=== PATIENT | female | born 1935 | race Caucasian/White ===

== ENCOUNTER 2017-05-24 11:52 | Inpatient (IN) | payer OTHER ==
[~2017-05-24] VITALS: Ht 167.6 cm; Wt 69.4 kg
[2017-05-24] MEDS ORDERED: OMEPRAZOLE20 M2 PO (12:03)
[2017-05-24] MEDS ORDERED: METOPROLOL SUC200 M2 PO (12:03)
[2017-05-24] MEDS ORDERED: METFORMIN HCL500 M3 PO (12:04)
[2017-05-24] MEDS ORDERED: LOSARTAN POTAS100 M1 PO (12:04)
[2017-05-24] MEDS ORDERED: HYDROCHLOROTH12.5 M3 PO (12:05)
[2017-05-24] MEDS ORDERED: ATORVASTATIN CA20 M1 PO (12:05)
[2017-05-24] MEDS ORDERED: OCUVITE WITH L1 EACH PO (12:06)
--- NOTE | 2017-05-24 12:12 | ED MVC/FALL/TRAUMA COMPLAINT ---
History of Present Illness General Chief Complaint: Fall Stated Complaint: BIBA FOR FALL Source: patient, EMS Exam Limitations: no limitations Allergies Coded Allergies: Penicillins (RASH 05/24/17) Sulfa (Sulfonamide Antibiotics) (RASH 05/24/17) acetaminophen (PASSES OUT, POURING SWEAT 05/24/17) azithromycin (RASH 05/24/17) cephalexin (From KEFLEX) (RASH 05/24/17) ciprofloxacin (From CIPRO) (RASH 05/24/17) erythromycin base (RASH 05/24/17) ibuprofen (PASSES OUT, POURING SWEAT 05/24/17) Reconcile Medications Aspirin (Ecotrin*) 81 MG TABLET.DR 1 TAB PO DAILY HEART/BLOOD (Reported) Atorvastatin Calcium 20 MG TABLET 20 MG PO DAILY CHOLESTEROL (Reported) Calcitriol 0.25 MCG CAPSULE 1 CAP PO Friday PARATHYROID (Reported) Calcium Carbonate/Vitamin D3 (Os-Julio 500+D3 Caplet) (Unknown Strength) TABLET (Unknown Dose) PO DAILY SUPPLEMENT (Reported) Clonidine 0.1 MG/24 HOUR PATCH.TDWK 1 PATCH TOP QFRI BP (Reported) Hydrochlorothiazide 12.5 MG CAPSULE 3 CAP PO DAILY BP (Reported) Isradipine 2.5 MG CAPSULE 2 CAP PO QAM BP (Reported) Isradipine 2.5 MG CAPSULE 1 CAP PO QPM BP (Reported) Losartan Potassium 100 MG TABLET 100 MG PO QPM HTN (Reported) Metformin HCl 500 MG TABLET 500 MG PO DAILY DM (Reported) Metoprolol Succinate 200 MG TAB.ER.24H 200 MG PO DAILY HEART/BP (Reported) Omeprazole 20 MG CAPSULE.DR 20 MG PO DAILY AC GI (Reported) Vit A,C & E/Lutein/Minerals (Ocuvite With Lutein Tablet) 1,000-60-2 TABLET 1 TAB PO DAILY SUPPLEMENT (Reported) Triage Note: PT HAD AN UNWITNESSED TRIP AND FALL WHILE ATTEMPTING TO GET BACK IN HER HOUSE. PT DENIES HITTING HER HEAD. NO LOC. NO BLOOD THINNERS. PT C/O R KNEE PAIN. PT WAS UNABLE TO GET UP INDEPENDENTLY AND WAS ON THE FLOOR FOR APPROXIMATELY 2 HOURS. Triage Nurses Notes Reviewed? yes Onset: Just prior to arrival Duration: hour(s): (2) Timing: no prior history Severity: moderate Severity Numbers: 8 Injuries/Fall Location: lower extremity Method of Injury: fall Loss of Consciousness: no loss of consciousness Modifying Factors: Improves With: rest. Worsens With: movement, palpation. Associated Symptoms: RIGHT KNEE SWELLING HPI: Patient is an 82-year-old female from home presenting to the emergency department via EMS with chief complaint of right knee pain, swelling left-sided suddenly after she tripped and fell prior to arrival. Patient was that she was walking into her house and slipped on a rug in the [facility]. She reports that she fell forward and landed directly on her right knee. Denies any head injury or loss of consciousness. Denies any back or neck pain. She was unable to get up by herself and happily on the floor for approximately 1-2 hours for the mailman to come. Denies numbness or tingling. Pain is worse with any type of movement. Denies taking anything for pain prior to arrival. Denies any nausea or vomiting fevers or chills chest pain or shortness of breath. Denies any lightheadedness or dizziness. No chest pain or palpitations. Patient reports that FALL WAS PURELY mechanical. (Lianna Chanel) Vital Signs & Intake/Output Vital Signs & Intake/Output Vital Signs Date Time Temp Pulse Resp B/P B/P Pulse O2 O2 Flow FiO2 Mean Ox Delivery Rate 05/24 1715 98.1 81 16 182/74 97 Room Air 05/24 1651 97.2 70 16 176/64 98 Room Air 05/24 1502 98.0 74 18 182/62 96 Room Air 05/24 1413 97.8 62 18 195/84 97 Room Air 05/24 1210 184/72 05/24 1158 97.7 69 18 98 Room Air (Nata MAGALLANES,Ian Jnoas) Past History Travel History Traveled to [place] past 21 day No Medical History Any Pertinent Medical History? see below for history Cardiovascular: hypertension, hyperlipidemia Gastrointestinal: GERD Endocrine: diabetes Surgical History Surgical History: non-contributory Psychosocial History What is your primary language Togolese Tobacco Use: Never used Family History Hx Contributory? No (Lianna Chanel) Review of Systems Review of Systems Constitutional: Reports: no symptoms. Comments Review of systems: See HPI, All other systems negative. Constitutional, no chills fever or weight loss HEENT: No visual changes no sore throat no congestion Cardiovascular: No chest pain ,palpitation , orthopnea or ankle swelling Skin, no jaundice no rashes Respiratory: No dyspnea cough sputum or hemoptysis GI: No nausea no vomiting : No dysuria No hematuria Muscle skeletal: no back pain, no neck pain, Neurologic: No numbness no confusion Psych: No stress anxiety or depression,. Heme/endocrine: No bruising no bleeding no polyuria or polydipsia Immunology: No splenectomy or history of AIDS (Lianna Chanel) Physical Exam Physical Exam General Appearance: well developed/nourished, no apparent distress, alert, awake , comfortable Comments: Well-developed well-nourished person in no acute distress HEENT: extraocular motion intact, no nystagmus. Pupils equally round and reactive to light and accommodation. Nose is atraumatic. External auditory canal and Tympanic membranes clear. Pharynx normal. No swelling or edema. No hemotympanum. No pain to palpation over the facial months. Neck: Supple,, no C-spine tenderness, full range of motion. Back: Nontender, no pain to palpation over the thoracic or lumbar spine. No ecchymosis noted to the back. Cardiovascular: Regular rate and rhythms no murmurs rubs or gallops Respiratory: Chest nontender. No respiratory distress.breath sounds clear to auscultation bilaterally Abdomen: Soft, nontender nondistended, no appreciable organomegaly. Normal bowel sounds. No ascites, no rebound or guarding. Extremity: Moderate edema and ecchymosis noted over the right patella. There is tenderness to palpation diffusely over the right knee. Positive ballottement test on the right knee. No pain to palpation of the right calf, right ankle or foot. Full range of motion of right foot and toes without difficulty. Nontender to palpation of the right hip. Mild tenderness to palpation over the right distal femur. Full range of motion of upper extremities without difficulty or pain. Pin Cleaner strength equal and symmetric bilaterally. Range of motion of left lower extremity without difficulties or pain. Neuro: Alert oriented x3, motor sensory normal, cranial nerves II through XII grossly intact. Cerebellar testing is unremarkable. Skin: No appreciable rash on exposed skin, skin is warm and dry. Psych: Mood and affect is normal, memory and judgment is normal. Core Measures ACS in differential dx? No CVA/TIA Diagnosis No Sepsis Present: No Sepsis Focused Exam Completed? No (Erika PA,Lianna) Progress Differential Diagnosis: LIGAMENTOUS INJURY, SPRAIN, PATELLAR FRACTURE, HIP FRACTURE, FEMUR FRACTURE Diagnostic Imaging: Viewed by Me: Radiology Read. Discussed w/RAD: Radiology Read. Radiology Impression: PATIENT: MARK DENTON PRESENT AGE: 82 PATIENT ACCOUNT NO: [id number] : 34 LOCATION: [facility] ORDERING PHYSICIAN: Lianna GUILLORY SERVICE DATE: 05/24/17 EXAM TYPE: RAD - XRY-HIP 2-3 VIEWS, RIGHT; XRY-KNEE COMPLETE RIGHT EXAMINATION: XR HIP; KNEE, RIGHT CLINICAL INFORMATION: 82-year-old woman with fall and pain. COMPARISON: None TECHNIQUE: AP view of the pelvis and 2 dedicated views of the right hip were obtained along with 4 views of the right knee. FINDINGS: Pelvis/hip: AP view of the pelvis demonstrates no evidence of acute fracture. Chronic degenerative changes are seen at the pubic symphysis and SI joints. There has been prior lower lumbar spinal fusion. Dedicated views of the right hip demonstrates no evidence of acute fracture. Alignment remains anatomic. There is mild degenerative loss of normal articular cartilage space. Knee: There is a comminuted and superiorly displaced fracture of the patella which appears somewhat fragmented. The position of the patella suggests disruption of the patellar ligament is well, at least superiorly. Alignment of the femur and tibia is anatomic. There is chondrocalcinosis and mild to moderate loss of medial and lateral compartment articular cartilage space. There is prepatellar soft tissue swelling. No definite joint effusion is identified. IMPRESSION: 1. No evidence of acute fracture or dislocation involving the pelvis or right hip. 2. Comminuted and fragmented fracture of the patella with superior dislocation and presumed disruption of the superior patellar ligament. DICTATED BY: Xenia Barone MD DATE/TIME DICTATED:05/24/171441 QUALITY ASSURANCE TECHNICIAN:RUSS DATE/TIME TRANSCRIBED:05/24/171441 CONFIDENTIAL, DO NOT COPY WITHOUT APPROPRIATE AUTHORIZATION. <Electronically signed in Other Vendor System> SIGNED BY: Xenia Barone MD 05/24/171447 CXR Impression: PATIENT: MARK DENTON PRESENT AGE: 82 PATIENT ACCOUNT NO: [id number] : 34 LOCATION: ER ORDERING PHYSICIAN: Lianna GUILLORY SERVICE DATE: 05/24/17-150 EXAM TYPE: RAD - XRY- PORTABLE CHEST XRAY EXAMINATION: XR PORTABLE CHEST CLINICAL INFORMATION: Preop. COMPARISON: Chest radiography 10/18/2010. TECHNIQUE: Portable frontal view of the chest was obtained. FINDINGS: The lungs are well expanded. No focal consolidation, pleural effusion, pulmonary edema, or pneumothorax. No mediastinal widening. Aortic atherosclerotic calcification. No acute osseous abnormalities. IMPRESSION: No acute pulmonary pathology. DICTATED BY: Ross Contrears MD DATE/TIME DICTATED:05/24/171534 QUALITY ASSURANCE TECHNICIAN:RUSS DATE/TIME TRANSCRIBED:05/24/171534 CONFIDENTIAL, DO NOT COPY WITHOUT APPROPRIATE AUTHORIZATION. <Electronically signed in Other Vendor System> SIGNED BY: Ross Contreras MD 05/24/17 8124 (Lianna Chanel) Plan of Care: Orders Procedure Date/time Status Nothing by Mouth 05/25 B Active CBC WITHOUT DIFFERENTIAL 05/25 0600 Active BASIC ELECTROLYTES PLUS BUN&CR 05/25 0600 Active Heart Healthy Diet 05/24 D Complete FingerStick- Glucose 05/24 1801 Active Device(s) 05/24 1652 Active Weight 05/24 1651 Complete Vital Signs 05/24 1651 Active Teach/Educate 05/24 1651 Active Pain Treatment and Response 05/24 1651 Active Nutritional Intake, Monitor 05/24 1651 Active Isolation 05/24 1651 Active Intake & Output 05/24 1651 Active Patient Care Conference 05/24 1651 Active Activity/Ambulation 05/24 1651 Active Pathway - chart 05/24 1631 Active House Staff 05/24 1631 Active Misc Message 05/24 1607 Active ED Holding Orders 05/24 1607 Active Vital Signs 05/24 1607 Active Code Status 05/24 1607 Active Admit to inpatient 05/24 1554 Active Patient Data 05/24 1530 Active EKG 05/24 1508 Active PARTIAL THROMBOPLASTIN TIME 05/24 1425 Complete PROTHROMBIN TIME 05/24 1425 Complete COMPREHENSIVE METABOLIC PANEL 05/24 1425 Complete CBC WITHOUT DIFFERENTIAL 05/24 1425 Complete TYPE & SCREEN (NOT X-MATCH) 05/24 1425 Complete Durable Medical Equipment 05/24 1416 Active Intake & Output 05/24 1155 Active VTE Mechanical Prophylaxis 05/24 UNK Active FingerStick- Glucose 05/24 UNK Active Current Medications Sig/Torin Start time Last Medication Dose Stop Time Status Admin Calcitriol 0.25 MCG 05/26 1000 AC (Rocaltrol 0.25 Mcg Cap) Hydrochlorothiazide 37.5 MG DAILY 05/26 1000 CAN (Hydrodiuril) Atorvastatin Calcium 20 MG DAILY 05/25 1000 AC (Lipitor) Metoprolol Succinate 200 MG DAILY 05/25 1000 AC (Toprol Xl) Non-Formulary 2.5 UNIT QAM 05/25 1000 UNVr Medication (NON FORMULARY) Omeprazole 20 MG DAILY AC 05/25 0700 AC (Prilosec) Dextrose/Sodium 1,000 ML Q13H 05/25 0600 AC Chloride (D5W-1/2 Normal Saline 1000ML) Insulin Human Regular 0 Q6 05/24 2359 AC (NovoLIN R) Heparin Sodium 5,000 UNIT Q8 05/24 2200 CAN (Porcine) Losartan Potassium 100 MG QPM 05/24 2200 AC (Cozaar) Non-Formulary 2.5 UNIT QPM 05/24 2200 UNVr Medication (NON FORMULARY) Lidocaine 1 PAT DAILY PRN 05/24 1830 AC (Lidoderm) Morphine Sulfate 2 MG Q4 PRN 05/24 1830 AC (MORPHINE SULFATE) Acetaminophen 500 MG Q6P PRN 05/24 1645 CAN (Tylenol) Acetaminophen 1,000 MG Q8 PRN 05/24 1645 CAN (Ofirmev) Laboratory Tests 05/24/17 1443: Anion Gap 13, Estimated GFR 47 L, BUN/Creatinine Ratio 34.5 H, Glucose 115 H, Calcium 9.8, Total Bilirubin 0.8, AST 24, ALT 28, Alkaline Phosphatase 60, Total Protein 7.4, Albumin 4.3, Globulin 3.1, Albumin/Globulin Ratio 1.4, PT 11.3, INR 1.08, APTT 28, CBC w Diff NO MAN DIFF REQ, RBC 5.16, MCV 90.1, MCH 29.2, MCHC 32.5 L, RDW 13.5, MPV 9.0, Gran % 76.8 H, Lymphocytes % 17.8 L, Monocytes % 4.6, Eosinophils % 0.5, Basophils % 0.3, Absolute Granulocytes 10.4 H, Absolute Lymphocytes 2.4, Absolute Monocytes 0.6, Absolute Eosinophils 0.1, Absolute Basophils 0 (Ian Peace MD) Departure Departure Time of Disposition: 1533 Disposition: STILL A PATIENT Condition: Stable Clinical Impression Primary Impression: Patella fracture Qualifiers: Encounter type: initial encounter Fracture type: closed Fracture morphology: comminuted Fracture alignment: displaced Laterality: right Qualified Code: S82.041A - Displaced comminuted fracture of right patella, initial encounter for closed fracture Referrals: Darlene MAGALLANES,Steven Marie (PCP/Family) Departure Forms: Customer Survey General Discharge Information Admission Note Spoke With: Judd Ragland MD Documentation of Exam: Documentation of any treatments & extenuating circumstances including Concerns Regarding Discharge (functional status, medication knowledge or non-compliance, living conditions, etc.) that warrant an admission rather than observation: Patient requiring surgical fixation of right patella, will need physical therapy evaluation, potential rehabilitation placement. Pain control. Patient will need medical clearance prior to surgical procedure. Discharge at this time is medically harmful is patient lives alone, increased fall RISK. (Lianna Chanel) PA/BILLET DRILLER Co-Sign Statement Statement: ED Attending supervision documentation- [X] I saw and evaluated the patient. I have also reviewed all the pertinent lab results and diagnostic results. I agree with the findings and the plan of care as documented in the PA's/BILLET DRILLER's documentation. Patient presents for evaluation of injury sustained status post fall. Physical examination reveals right knee tenderness with otherwise neurovascularly intact right lower extremity. [] I have reviewed the ED Record and agree with the PA's/BILLET DRILLER's documentation. [] Additions or exceptions (if any) to the PAs/BILLET DRILLER's note and plan are summarized below: [] (Nata MAGALLANES,Ian Jonas) Procedures Splinting Location: RIGHT KNEE Manual Alignment Performed: No Pre-Made Type: knee imobilizer Splint Applied By: splint applied by other (NURSING) Pre-Proc Neuro Vasc Exam: normal Post-Proc Neuro Vasc Exam: normal Progress: TOLERATED WELL. (Lianna Chanel)
--- NOTE | 2017-05-24 14:48 | RADIOLOGY REPORT ---
EXAMINATION: XR HIP; KNEE, RIGHT CLINICAL INFORMATION: 82-year-old woman with fall and pain. COMPARISON: None TECHNIQUE: AP view of the pelvis and 2 dedicated views of the right hip were obtained along with 4 views of the right knee. FINDINGS: Pelvis/hip: AP view of the pelvis demonstrates no evidence of acute fracture. Chronic degenerative changes are seen at the pubic symphysis and SI joints. There has been prior lower lumbar spinal fusion. Dedicated views of the right hip demonstrates no evidence of acute fracture. Alignment remains anatomic. There is mild degenerative loss of normal articular cartilage space. Knee: There is a comminuted and superiorly displaced fracture of the patella which appears somewhat fragmented. The position of the patella suggests disruption of the patellar ligament is well, at least superiorly. Alignment of the femur and tibia is anatomic. There is chondrocalcinosis and mild to moderate loss of medial and lateral compartment articular cartilage space. There is prepatellar soft tissue swelling. No definite joint effusion is identified. IMPRESSION: 1. No evidence of acute fracture or dislocation involving the pelvis or right hip. 2. Comminuted and fragmented fracture of the patella with superior dislocation and presumed disruption of the superior patellar ligament.
[2017-05-24 15:08] LABS: ABSOLUTE BASOPHIL COUNT 0 /CUMM (0.0-0.2); ABSOLUTE EOSINOPHIL COUNT 0.1 /CUMM (0.0-0.7); ABSOLUTE GRANULOCYTE CT 10.4 /CUMM (1.4-6.5); ABSOLUTE LYMPH COUNT 2.4 /CUMM (1.2-3.4); ABSOLUTE MONOCYTE COUNT 0.6 /CUMM (0.10-0.60); BASOPHIL % 0.3 % (0.0-2.0); EOSINOPHIL % 0.5 % (0-5); HEMATOCRIT 46.5 % (37-47); MEAN CORPUSCULAR HGB 29.2 PG (27.0-31.0); MEAN CORPUSCULAR HGB CONC 32.5 G/DL (33.0-37.0); MEAN CORPUSCULAR VOLUME 90.1 FL (81.0-99.0); PLATELET COUNT 322 /CUMM (130-400); RBC DISTRIBUTION WIDTH 13.5 % (11.5-14.5); RED BLOOD CELL CT 5.16 /CUMM (4.20-5.40); WHITE BLOOD CELL COUNT 13.6 /CUMM (4.8-10.8)
[2017-05-24 15:09] LABS: GRANULOCYTE % 76.8 % (42.2-75.2)
[2017-05-24 15:16] LABS: PT 11.3 SEC (9.4-12.5); PTT 28 SEC (25-37)
--- NOTE | 2017-05-24 15:31 | History & Physical ---
Roderick MAGALLANES,Michele 05/24/17 1531: General Information and HPI MD Statement: I have seen and personally examined MARK DENTON and documented this H&P. The patient is a 82 year old F who presented with a patient stated chief complaint of mechanical fall. Source of Information: patient Exam Limitations: no limitations History of Present Illness: This is a very pleasant 82-year-old lady with a past medical history of hypertension managed by multiple medications, diabetes, is BIBA after having a mechanical fall. Earlier today patient was walking back into her house and she slipped on a rug and fell hard on her knees. She denied hitting her head. Patient reports not being able to get up by herself and spent almost an hour on the floor until someone came over to assist her. She denies any lightheadedness , syncope, chest pain, palpitation, or vertigo prior to the fall. She does report that it was slippery outside. Review of systems negative for any fever, chills, weakness, muscle aches, abdominal pain or dysuria. Allergies/Medications Allergies: Coded Allergies: Penicillins (RASH 05/24/17) Sulfa (Sulfonamide Antibiotics) (RASH 05/24/17) acetaminophen (PASSES OUT, POURING SWEAT 05/24/17) azithromycin (RASH 05/24/17) cephalexin (From KEFLEX) (RASH 05/24/17) ciprofloxacin (From CIPRO) (RASH 05/24/17) erythromycin base (RASH 05/24/17) ibuprofen (PASSES OUT, POURING SWEAT 05/24/17) Home Med list Aspirin (Ecotrin*) 81 MG TABLET.DR 1 TAB PO DAILY HEART/BLOOD (Reported) Atorvastatin Calcium 20 MG TABLET 20 MG PO DAILY CHOLESTEROL (Reported) Calcitriol 0.25 MCG CAPSULE 1 CAP PO Friday PARATHYROID (Reported) Calcium Carbonate/Vitamin D3 (Os-Julio 500+D3 Caplet) (Unknown Strength) TABLET (Unknown Dose) PO DAILY SUPPLEMENT (Reported) Clonidine 0.1 MG/24 HOUR PATCH.TDWK 1 PATCH TOP QFRI BP (Reported) Hydrochlorothiazide 12.5 MG CAPSULE 3 CAP PO DAILY BP (Reported) Isradipine 2.5 MG CAPSULE 2 CAP PO QAM BP (Reported) Isradipine 2.5 MG CAPSULE 1 CAP PO QPM BP (Reported) Losartan Potassium 100 MG TABLET 100 MG PO QPM HTN (Reported) Metformin HCl 500 MG TABLET 500 MG PO DAILY DM (Reported) Metoprolol Succinate 200 MG TAB.ER.24H 200 MG PO DAILY HEART/BP (Reported) Omeprazole 20 MG CAPSULE.DR 20 MG PO DAILY AC GI (Reported) Vit A,C & E/Lutein/Minerals (Ocuvite With Lutein Tablet) 1,000-60-2 TABLET 1 TAB PO DAILY SUPPLEMENT (Reported) Past History Travel History Traveled to [place] past 21 day No Medical History Cardiovascular: hypertension, hyperlipidemia Gastrointestinal: GERD Endocrine: diabetes Surgical History Surgical History: non-contributory Review of Systems Review of Systems Constitutional: Reports: see HPI. Exam & Diagnostic Data Last 24 Hrs of Vital Signs/I&O Vital Signs Date Time Temp Pulse Resp B/P B/P Pulse O2 O2 Flow FiO2 Mean Ox Delivery Rate 05/24 1715 98.1 81 16 182/74 97 Room Air 05/24 1651 97.2 70 16 176/64 98 Room Air 05/24 1502 98.0 74 18 182/62 96 Room Air 05/24 1413 97.8 62 18 195/84 97 Room Air 05/24 1210 184/72 05/24 1158 97.7 69 18 98 Room Air Intake & Output 05/24 1600 05/24 0800 05/24 0000 Intake Total 0 Output Total Balance 0 Intake, Oral 0 Patient 69.4 kg Weight Weight Estimated Measurement Method Physical Exam General Appearance Alert, Oriented X3, Cooperative Skin No Significant Lesion Skin Temp/Moisture Exam: Warm/Dry Sepsis Skin Exam (color): Normal for Ethnicity HEENT Atraumatic, Mucous Membr. moist/pink Neck Supple, No JVD Lymphatic Cervical nl Cardiovascular Regular Rate, Normal S1, Normal S2 Lungs Clear to Auscultation, Normal Air Movement Abdomen Normal Bowel Sounds, Soft, No Tenderness Neurological Normal Speech, Normal Tone, Sensation Intact, Cranial Nerves 3-12 NL, Reflexes 2+ Extremities orthopedic brace intact on the right knee. ROM is decraesed due to swelling and pain. Sensation intact. Vascular Normal Pulses, Pulses Symmetrical Last 24 Hrs of Labs/Jason: Laboratory Tests 05/24/17 1443: Anion Gap 13, Estimated GFR 47 L, BUN/Creatinine Ratio 34.5 H, Glucose 115 H, Calcium 9.8, Total Bilirubin 0.8, AST 24, ALT 28, Alkaline Phosphatase 60, Total Protein 7.4, Albumin 4.3, Globulin 3.1, Albumin/Globulin Ratio 1.4, PT 11.3, INR 1.08, APTT 28, CBC w Diff NO MAN DIFF REQ, RBC 5.16, MCV 90.1, MCH 29.2, MCHC 32.5 L, RDW 13.5, MPV 9.0, Gran % 76.8 H, Lymphocytes % 17.8 L, Monocytes % 4.6, Eosinophils % 0.5, Basophils % 0.3, Absolute Granulocytes 10.4 H, Absolute Lymphocytes 2.4, Absolute Monocytes 0.6, Absolute Eosinophils 0.1, Absolute Basophils 0 Diagnostic Data Other Results SERVICE DATE: 05/24/17 EXAM TYPE: RAD - XRY-HIP 2-3 VIEWS, RIGHT; XRY-KNEE COMPLETE RIGHT EXAMINATION: XR HIP; KNEE, RIGHT CLINICAL INFORMATION: 82-year-old woman with fall and pain. COMPARISON: None TECHNIQUE: AP view of the pelvis and 2 dedicated views of the right hip were obtained along with 4 views of the right knee. FINDINGS: Pelvis/hip: AP view of the pelvis demonstrates no evidence of acute fracture. Chronic degenerative changes are seen at the pubic symphysis and SI joints. There has been prior lower lumbar spinal fusion. Dedicated views of the right hip demonstrates no evidence of acute fracture. Alignment remains anatomic. There is mild degenerative loss of normal articular cartilage space. Knee: There is a comminuted and superiorly displaced fracture of the patella which appears somewhat fragmented. The position of the patella suggests disruption of the patellar ligament is well, at least superiorly. Alignment of the femur and tibia is anatomic. There is chondrocalcinosis and mild to moderate loss of medial and lateral compartment articular cartilage space. There is prepatellar soft tissue swelling. No definite joint effusion is identified. IMPRESSION: 1. No evidence of acute fracture or dislocation involving the pelvis or right hip. 2. Comminuted and fragmented fracture of the patella with superior dislocation and presumed disruption of the superior patellar ligament. Assessment/Plan Assessment: This is an 82-year-old very pleasant lady presenting for evaluation of mechanical fall and is found to have radiological evidence of fracture patella. Impression * Mechanical fall. * Patella fracture. Secondary to mechanical fall. * Need for preop clearance. * History of chronic disease: Diabetes, hypertension. Plan * Admit to general medicine floor * Will keep nothing by mouth starting midnight in anticipation of orthopedic repair of the fractured platella * At baseline, patient is able to climb 2 flights of stairs with no difficulties which is > 4 MET and therefore does not require any further cardiac stress testing. * RCR-Index of 0, which is a class I risk signifying 0.4% risk for major cardiac event * Hold off on the diuretic as this type of medication can be associated with increased mortality if used during operative day. * Will hold off losartan on day of surgery * Continue metoprolol including the day of surgery * Nothing by mouth Novolin dosing starting midnight * Morphine as needed for moderate to severe pain control. For mild pain control will use lidocaine topically as patient is allergic to Tylenol and ibuprofen. * DVT PPX: ALPS * CODE STATUS: FC As Ranked By This Provider Problem List: 1. Patella fracture Qualifiers Encounter type: initial encounter Fracture type: closed Fracture morphology: comminuted Fracture alignment: displaced Laterality: right Qualified Code: S82.041A - Displaced comminuted fracture of right patella, initial encounter for closed fracture Core Measures/Misc (12/08) Acute Coronary Syndrome ACS Diagnosis: No Congestive Heart Failure Congestive Heart Failure Diagnosis No Cerebrovascular Accident CVA/TIA Diagnosis: No VTE (View Protocol) VTE Risk Factors No risk factors No Mechanical VTE Prophylaxis d/t N/A MechProphylax Ordered No VTE Pharm Prophylaxis d/t Surgical Contraindication Sepsis (View protocol) Sepsis Present: No Judd Ragland MD 05/25/17 0807: Attending MD Review Statement Attending Statement Attending MD Statement: examined this patient, discuss w/resident/PA/CONSULTING SERVICES MANAGER, agreed w/resident/PA/CONSULTING SERVICES MANAGER, discussed with family, reviewed EMR data (avail), reviewed images, amended to note Attending Assessment/Plan: The patient is an 82 yo female with h/o HTN & DM2 who presented in the Ed after a mechanical fall onto her knees and sustained a comminuted/fragmented right patellar fracture. She denied any dyspnea, chest pain, palpitations, weakness, etc. Seen by orthopedics, she will require surgical intervention. Physical Exam: VS: T 97.7, P 69, R 18, BP 184/72, PO 98% RA HEENT: eyes- PERRLA, EOMI norbert- moist mucosa, no lesions Neck: no JVD/bruits Chest: clear Cor: RRR nl S1, S2 w/o murm Abd: BS+, soft, NT, - HSM Ext: s/p right patellar fx- immobilized; no LE edema, pulses 2+ Neuro: non-focal (gait could not be tested) Labs/Tests- as above Impression/Plan: #Acute Right Patellar Fracture- comminuted/fragmented, s/p mechanical fall. Probable osteoporosis in 82 yo post menopausal female. RCRI suggests 0.4% cardiac risk for surgery. Plan: Admit to medical service- orthopedic consultation regarding surgical intervention 3/4. Patient is medically able to tolerate planned surgery. Will continue Ca/Vit D, etc. post op. #Essential HTN- BP slightly elevated due to pain. Plan: As per resident note- will give Metoprolol in morning with sip of water. Resume Losartan/Isradipine (or substitute Amlodipine) when needed. Hold HCTZ at present. Clonidine patch removed, however will replace post op- monitor BP. #DM2- patient has had stable sugars at home. Plan: Hold Metformin and check glucoscans and use sliding scale insulin in hospital. #HL- on Atorvastatin. Plan: Continue Atorvastatin. #GERD- on Omeprazole. Plan: Continue Omeprazole.
[2017-05-24] MEDS ORDERED: ASPIRIN EC81 M1 PO (15:38)
[2017-05-24] MEDS ORDERED: OS-CAL 500+D31 EAC1 PO (15:40)
[2017-05-24] MEDS ORDERED: CALCITRIOL0.25 MC1 PO (15:40)
[2017-05-24] MEDS ORDERED: ISRADIPINE2.5 MG PO ×2 (15:42)
[2017-05-24] MEDS ORDERED: CLONIDINE1 EACH TOP (15:42)
--- NOTE | 2017-05-24 15:44 | RADIOLOGY REPORT ---
EXAMINATION: XR PORTABLE CHEST CLINICAL INFORMATION: Preop. COMPARISON: Chest radiography 10/18/2010. TECHNIQUE: Portable frontal view of the chest was obtained. FINDINGS: The lungs are well expanded. No focal consolidation, pleural effusion, pulmonary edema, or pneumothorax. No mediastinal widening. Aortic atherosclerotic calcification. No acute osseous abnormalities. IMPRESSION: No acute pulmonary pathology.
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
[2017-05-24 17:15] VITALS: BP 182/74
[2017-05-24 22:22] VITALS: BP 158/78
--- NOTE | 2017-05-25 00:16 | Admission Certification ---
Admission Certification Certification Statement - As attending physician, I certify that at the time of - admission, based on clinical presentation, severity of - symptoms, need for further diagnostic testing and - therapeutic interventions, and risk of adverse outcomes - without in-hospital treatment, in my clinical assessment, - this patient requires an acute hospital stay for a minimum - of two nights or longer. I have also considered psychsocial - factors such as support system, advanced age, financial - issues, cognitive issues, and failed out-patient treatments, - past re-admission history, safety of patient, and lack of - compliance as applicable. Specific rationale supporting this admission is: The patient presents with acute right patellar fracture s/p mechanical fall requiring surgical intervention. Will admit to medical service, treat pain via pain pathway. NPO in morning for surgery.
[2017-05-25 05:53] VITALS: BP 122/68
[2017-05-25 08:54] LABS: ABSOLUTE EOSINOPHIL COUNT 0.1 /CUMM (0.0-0.7); ABSOLUTE LYMPH COUNT 3.5 /CUMM (1.2-3.4); ABSOLUTE MONOCYTE COUNT 1.1 /CUMM (0.10-0.60); EOSINOPHIL % 0.7 % (0-5); MEAN PLATELET VOLUME 9.4 FL (7.4-10.4); RBC DISTRIBUTION WIDTH 13.8 % (11.5-14.5)
--- NOTE | 2017-05-25 08:55 | PN- Housestaff ---
Roderick MAGALLANES,Michele 05/25/17 0854: Subjective Follow-up For: Patella fracture Subjective: Patient is seen and examined at bedside. She does endorse pain on her fractured patella area, she has been receiving when necessary morphine IV which she states helps. Denies any overnight fever, chills, nausea, vomiting, chest pain, palpitation, neurological focality, or dysuria. She is nothing by mouth and scheduled for surgery around 4 PM. Review of Systems Constitutional: Reports: see HPI. Objective Last 24 Hrs of Vital Signs/I&O Vital Signs Date Time Temp Pulse Resp B/P B/P Pulse O2 O2 Flow FiO2 Mean Ox Delivery Rate 05/25 0916 94 158/64 05/25 0553 98.5 90 22 122/68 94 Room Air 05/24 2222 99.9 91 22 158/78 94 Room Air 05/24 2053 90 158/78 05/24 1715 98.1 81 16 182/74 97 Room Air 05/24 1651 97.2 70 16 176/64 98 Room Air 05/24 1502 98.0 74 18 182/62 96 Room Air 05/24 1413 97.8 62 18 195/84 97 Room Air 05/24 1210 184/72 05/24 1158 97.7 69 18 98 Room Air Intake & Output 05/25 1600 05/25 0800 05/25 0000 Intake Total 75 240 Output Total 300 500 Balance -300 -425 240 Intake, IV 75 Intake, Oral 0 240 Number 0 0 Bowel Movements Output, Urine 300 500 Patient 69.4 kg Weight Weight Reported by Patient Measurement Method Physical Exam General Appearance: Alert, Oriented X3, Cooperative Assessment/Plan Assessment: 82-year-old pleasant lady past medical history of hypertension on multiple BP meds, presented after mechanical fall and is found to have a patellar fracture. She is scheduled for patellar repair surgery today. Impression * Right patella fracture secondary to mechanical fall * History of chronic disease: Hypertension and diabetes * Leukocytosis. Patient remains afebrile and no signs of clinical suspicion of infection such as cough, abdominal pain or dysuria. Most likely her leukocytosis is secondary to inflammatory processes from the injury. * Prerenal azotemia as evident by elevated BUN/creatinine ratio. However it seems to be resolving. Most likely secondary to decreased oral intake. Plan Continue nothing by mouth in preparation for surgery today Continue IV morphine for pain control Continue Accu-Cheks every 6h and Novolin coverage and will switch postop when patient is ready to resume diet Continue with D5 half normal at a gentle rate of 75mls per hour, this will also help with the prerenal is azotemia Follow-up in urinalysis, unlikely the patient has a UTI as she is symptom-free and afebrile. Will hold off losartan and clonidine today and restart post up, patient did take her metoprolol today Discharge disposition: Will l assess tomorrow after surgery, patient most likely will need STR. We will follow up with orthopedics recommendation on weightbearing status and postop care. Problem List: 1. Patella fracture Pain Ratin Pain Location: patella Pain Goal: Pain 4 or less Pain Plan: per pathway Tomorrow's Labs & Rationales: cbc Judd Lobo MD 05/25/17 1407: Attending MD Review Statement Attending Statement Attending MD Statement: examined this patient, discuss w/resident/PA/TRASHMAN, agreed w/resident/PA/TRASHMAN, reviewed EMR data (avail), discussed with nursing, amended to note Attending Assessment/Plan: The patient was seen and discussed with house staff. Awaiting orthopedic surgery later today. The patient is medically stable for planned procedure.
[2017-05-25 09:19] LABS: ABSOLUTE BASOPHIL COUNT 0 /CUMM (0.0-0.2); ABSOLUTE GRANULOCYTE CT 9.1 /CUMM (1.4-6.5); BASOPHIL % 0.2 % (0.0-2.0); GRANULOCYTE % 65.9 % (42.2-75.2); MEAN CORPUSCULAR HGB 29.8 PG (27.0-31.0); MEAN CORPUSCULAR VOLUME 90.2 FL (81.0-99.0); PLATELET COUNT 285 /CUMM (130-400); RED BLOOD CELL CT 4.38 /CUMM (4.20-5.40); WHITE BLOOD CELL COUNT 13.9 /CUMM (4.8-10.8)
[2017-05-25 09:22] LABS: HEMATOCRIT 39.5 % (37-47)
[2017-05-25 15:08] VITALS: BP 150/83
--- NOTE | 2017-05-25 18:36 | Operative Report ---
Operative/Inv Procedure Report Surgery Date: 05/25/17 Name of Procedure: Repair right comminuted displaced patellar fracture with partial patellectomy. Pre-Operative Diagnosis: Right comminuted displaced distal pole patella fracture. Post-Operative Diagnosis: Same. Estimated Blood Loss: less than 50ml Surgeon/[employer] Equipment Repairer: Viridiana Weaver Anesthesia: laryngeal mask airway, block Monitors: EKG/blood pressure/oxygen saturation IV Fluids: Lactated Ringer's. Implants: #5 FiberWire 2 #2 FiberWire 1 Urine Output: None. Drains: None. Specimens: Comminuted distal pole patella fracture fragments sent to pathology for documentation. Microbiology: None. Tourniquet: 14 minutes@300 mmHg (tourniquet deflated due to bleeding from venous tourniquet) . Complications: None known. Condition: Stable. Operative Indication: The patient is an 82-year-old female who sustained a trip and fall at her home landing directly on the right anterior knee. She was unable to get up from the ground on her own. In fact she was on the ground for about 2 hours before the postman noticed her lying on the ground in her foyer. She was brought to the [facility] emergency room where x-rays revealed a comminuted displaced distal pole patellar fracture. She was admitted to the hospital to undergo operative repair of the patella fracture. She was seen by the medical service to whose service she was actually admitted and she was optimized and ultimately cleared for surgery. We did discuss the risks and benefits and expected outcomes of nonoperative management of her displaced patella fracture versus that of operative intervention. I did recommend operative intervention as the only reasonable viable option for this fracture. All the patient's questions were answered at length. She did wish to move forward with surgical management of her patella fracture as recommended and surgical consent was obtained. Operative/Procedure Note Note: The patient was brought to the operating room and placed on the operating table in the supine position. General anesthesia by the anesthesia team was induced. This was supplemented with a right lower extremity femoral block for prolonged postoperative pain relief as well as to minimize need for medications intraoperatively. A dose of IV antibiotics were given for infection prophylaxis. A well-padded tourniquet was applied to the proximal portion of the right thigh. The contralateral left lower extremity was placed into a Compression sleeve to hopefully minimize left lower extremity venous pooling and cut down on risk of blood clot formation and propagation. All bony prominences were well-padded. The right lower extremity was then prepped and draped in the usual sterile fashion. The extremity was marked for a planned longitudinal midline anterior surgical incision centered over the region of the patella centrally and extending towards the medial aspect of the tibial tubercle distally and extending for about 5 cm proximally as well. After the skin was marked the extremity was exsanguinated and the pneumatic tourniquet was inflated to a pressure of 300 mmHg. The skin incision was created. Sharp dissection was continued down through the skin and the subcutaneous tissues we did encounter hemarthrosis which was evacuated as the retinacular tissue had been disrupted as part of the widely displaced patellar fracture. We raised full-thickness skin with subcutaneous tissue flaps along the incision to gain better exposure of the extensor mechanism. We were encountering some venous type bleeding which seem to be consistent with a venous tourniquet despite the tourniquet being up to 300 mmHg and the patient's systolic pressure not being particularly high. That being said we did deflate the tourniquet for the remainder of the case after tourniquet time of 14 minutes. With the tourniquet down we did encounter some increased bleeding for a bit. This was handled electrocautery and manual pressure. Once we had adequate hemostasis we evaluated the extensor mechanism. The patella fracture involving the distal roughly 1/3 of the patella. The fracture was markedly comminuted with no viable chance of using the distal fracture fragments for repair to the proximal two thirds of the patella. With that in mind we proceeded with partial patellectomy me dissecting out the comminuted displaced distal pole patellar fracture fragments trying to minimize disruption of the proximal patella ligament as best as possible. We aggressively debrided the retropatellar fat pad to help with skeletonizing the patella ligament from behind. We did also dissect down the medial and lateral aspects of the patella ligament so that we can skeletonize the patella ligament for repair. We next turned our attention to the remaining two thirds of the patella where we debrided the margins of the patellar fracture with a combination of scalpel and rongeurs. We now had reasonable exposure of the cancellus bone at the distal end of the patella. A transverse trough was created with a curette as a docking trough for the patella ligament. We next drilled 3 parallel longitudinal drill holes with a 2 mm drill bit in a distal to proximal direction beginning in the docking trough centrally and running the first drill hole towards the proximal pole of the patella as centrally as possible. We repeated this with 2 additional parallel drill holes with one to either side offset by about 1 cm in either direction allowing for bone bridges between the drill holes. We next redirected our attention towards the patella ligament. We used 2 #5 FiberWire sutures each placed in running Krakw fashion to gain control of the patella ligament. The first #5 FiberWire is placed in running Krakw fashion for the lateral one half of the patella ligament allowing the free ends of the FiberWire to come out the proximal free edge of the patella ligament. This was repeated with a second #5 FiberWire on the medial one half of the patella ligament. We next used a Hewson suture passer directed through the midline longitudinal drill hole in a proximal to distal direction to shuttle the central two #5 FiberWire limbs (the lateral limb of the medial Krakw suture and the medial limb of the lateral Krakw suture) up through the patella and out through a small puncture defect made in the distal quadriceps mechanism. We repeated this process with the Hewson suture passer to retrieve the remaining lateral suture limb of the lateral Krakw suture up through the lateral drill hole and the medial suture limbs of the medial Krakw suture up to the medial drill hole. We next used a hemostat to shuttle the central suture limbs under the patella ligament with the appropriate central suture limb being brought under the soft tissues and out the small defect in the lateral aspect of the distal quadriceps mechanism so that it could be mated with the lateral suture limb of the lateral Krakw suture. This was repeated in similar fashion for the medial set of sutures. We next placed Srinivas clamps on the retinacular tissues to either side of the patella and used that to pull down the patella with the quadriceps mechanism attached to it in a proximal to distal direction to allow for the free end of the patella ligament to be docked and sutured to the free margin of the remnant of the patella. By applying longitudinal traction to reduce the defect between the distal end of the patella and the free margin of the patella ligament both sets of free limbs of the sets of the Krakw sutures were tied over the bone bridges but under the distal quadriceps mechanism soft tissues. This accomplished a very nice repair of the free margin of the patella ligament to the distal free margin of the patella. The knee was irrigated with saline multiple times. We next used a combination of #2 FiberWire suture material and [address] additional supporting sutures into the retinacular soft tissues and to the anterior aspect of the patella ligament to the soft tissues over the anterior patella. This seemed to accomplish a very nice overall repair of the patella ligament back to bone. I did place the knee through a very limited range of knee flexion motion. I appreciated no gapping with flexion of the knee to about 40 though I did not feel comfortable stressing the repair any further beyond this. After additional irrigation the soft tissues were closed in layers with 0 Vicryl placed in the deep subcutaneous tissue layer. This was followed by use of 2-0 Vicryl placed in interrupted buried fashion in the more superficial subcutaneous tissue layer. The skin margins were then approximated using a skin stapler. The wound was washed and dried. Adaptic dressing was placed over the staple line followed by sterile gauze dressings and a couple of abdominal pads. The dressings and abdominal pads were held in place with a couple of rolls of Kerlix gauze wrapping. We next wrapped the extremity from the ankle distally to the upper thigh proximally with Navneet bandages to hold the dressings in place but also provide compression to the knee and gentle compression to the extremity in general hoping to minimize risk of venous pooling and blood clot formation a propagation. The right lower extremity was placed in full extension into a knee immobilizer. The patient was awakened from general anesthesia. She was transferred to her hospital bed and brought back to the recovery room in stable condition having tolerated the procedure well. Findings: 1) Comminuted distal pole patella fracture. 2) Excellent repair patella ligament to patellar defect achieved. Discharge Disposition: PACU
[2017-05-25 20:00] VITALS: BP 142/60
--- NOTE | 2017-05-25 20:55 | PN- Orthopedic ---
Subjective Subjective: POST-OP CHECK Pt in bed, complains of mod hip pain. right leg still mostly numb from pre-op block. No nausea denies cp/sob/petty. Objective Vital Signs and I&Os Vital Signs Date Time Temp Pulse Resp B/P B/P Pulse O2 O2 Flow FiO2 Mean Ox Delivery Rate 05/26 1999 65 16 142/60 97 Nasal 2.0L Cannula 05/25 1508 98.8 73 20 150/83 95 Room Air 05/25 0916 94 158/64 05/25 0553 98.5 90 22 122/68 94 Room Air 05/24 2222 99.9 91 22 158/78 94 Room Air 05/24 2053 90 158/78 Intake & Output 05/25 1600 05/25 0800 05/25 0000 05/24 1600 05/24 0000 Intake Total 75 240 0 Output Total 500 500 Balance -500 -425 240 0 Intake, IV 75 Intake, Oral 0 240 0 Number 0 0 Bowel Movements Output, Urine 500 500 Patient 153 lb 153 lb Weight Weight Reported by Patient Estimated Measurement Method Physical Exam: GEN-nad, pt comfortable resp-clear cardio-rrr abd- soft, NT ext- 2+ PT pulse bilaterally. distal motor function intact. limited sensation in right LE due to nerve block. Right leg wrapped in taylor bandage Assessment/Plan Assessment/Plan 82yo F SP R partial patellectomy POD0. stable Pain mangement Physical therapy- PWB on RLE, to wear knee immobilizer for 6-8 weeks Ice to op site as needed Reg diet DVT ppx- eliquis and alps 24h rhoda-op Clindamycin Core Measures Venous Thromboembolism VTE Risk Factors No risk factors No Mechanical VTE Prophylaxis d/t N/A MechProphylax Ordered No VTE Pharm Prophylaxis d/t Surgical Contraindication
[2017-05-25 22:25] VITALS: BP 130/56
[2017-05-26 06:55] VITALS: BP 132/54
--- NOTE | 2017-05-26 07:29 | PN- Housestaff ---
Arianne MAGALLANES,[facility] 05/26/17 0729: Subjective Follow-up For: Patella fracture Subjective: Patient was seen and examined at bedside. She reports doing okay. She has some pain in her knee that was operated on, however, does not want any pain meds for now. Review of Systems Constitutional: Reports: no symptoms. Objective Last 24 Hrs of Vital Signs/I&O Vital Signs Date Time Temp Pulse Resp B/P B/P Pulse O2 O2 Flow FiO2 Mean Ox Delivery Rate 05/26 0555 97.6 66 18 132/54 97 05/26 0000 Nasal 2.0L Cannula 05/255 97.9 64 18 130/56 98 Nasal 2.0L Cannula 05/25 2203 130/56 05/25 2202 64 130/56 05/25 2000 65 16 142/60 97 Nasal 2.0L Cannula 05/25 1508 98.8 73 20 150/83 95 Room Air Intake & Output 05/26 1600 05/26 0800 05/26 0000 Intake Total 600 150 Output Total 350 Balance 250 150 Intake, IV 600 150 Output, Urine 350 Physical Exam General Appearance: Alert, Oriented X3, Cooperative, No Acute Distress Skin: No Rashes, No Breakdown Skin Temp/Moisture Exam: Warm/Dry Sepsis Skin Exam (color): Normal for Ethnicity HEENT: Atraumatic Cardiovascular: Normal S1, Normal S2, No Murmurs Lungs: Clear to Auscultation, Normal Air Movement Abdomen: Soft, No Tenderness Neurological: Normal Speech Extremities: No Edema Assessment/Plan Assessment: 82-year-old pleasant lady with past medical history of hypertension, CKD, diabetes presented after mechanical fall and was found to have a patellar fracture after a mechanical fall. Assessment: 1. Right comminuted displaced distal pole patella fracture secondary to mechanical fall 2. History of Hypertension and diabetes 3. Leukocytosis. Likely Reactive 4. Prerenal azotemia - resolved. Plan: * Continue IV morphine for pain control. * PT eval today. * Nephro consult for LAURA on CKD. * LAURA likely due to perioperative hypotension. * Restart Clonidine today. * Hold Losartan in the context of LAURA. * Urine culture pending * UA showed leukocyte esterase but the patient is asymptomatic. Will observe off antibiotics. She does have white count which could be reactive. Patient has been afebrile. * Urine Sodium, Cr - pending * Continue IVF * Diet: Regular. Blood sugars in acceptable range. Will switch to CC1 if patient becomes too hyperglycemic. * DVT Prophylaxis: Eliquis 2.5mg BID * Code: Full Code Problem List: 1. Patella fracture Pain Ratin Pain Location: none Pain Goal: Remain pain free Pain Plan: none Tomorrow's Labs & Rationales: CBC,BEP Thomas Coppola 05/26/17 1115: Attending MD Review Statement Attending Statement Attending MD Statement: examined this patient, discuss w/resident/PA/HIGH SCHOOL DIRECTOR, agreed w/resident/PA/HIGH SCHOOL DIRECTOR, discussed with family, reviewed EMR data (avail), discussed with nursing, discussed with case mgmt, reviewed images, amended to note Attending Assessment/Plan: #Acute Right Patellar Fracture s/p repair- comminuted/fragmented, s/p mechanical fall. Probable osteoporosis in 82 yo post menopausal female s/p repair, orthopedics following, DVT prophyalxis as per ortho. Will continue Ca/Vit D. #Acute kidney injury : cr 1.6 Plan: Hold losartan, helf diuretics, resume clonidine patch. Consult nephrology. Monitor creatinine. #DM2- patient has had stable sugars at home. Plan: Held Metformin and use sliding scale insulin in hospital. #HL- on Atorvastatin. Plan: Continue Atorvastatin. #GERD- on Omeprazole. Plan: Continue Omeprazole.
[2017-05-26 08:08] LABS: ABSOLUTE BASOPHIL COUNT 0 /CUMM (0.0-0.2); ABSOLUTE EOSINOPHIL COUNT 0 /CUMM (0.0-0.7); ABSOLUTE MONOCYTE COUNT 1.3 /CUMM (0.10-0.60); BASOPHIL % 0.2 % (0.0-2.0); EOSINOPHIL % 0 % (0-5)
[2017-05-26 08:51] LABS: ABSOLUTE GRANULOCYTE CT 12.8 /CUMM (1.4-6.5); GRANULOCYTE % 79.1 % (42.2-75.2); MEAN CORPUSCULAR HGB 29.6 PG (27.0-31.0); MEAN CORPUSCULAR HGB CONC 32.5 G/DL (33.0-37.0); MEAN CORPUSCULAR VOLUME 91.1 FL (81.0-99.0); MEAN PLATELET VOLUME 9.4 FL (7.4-10.4); PLATELET COUNT 255 /CUMM (130-400); RBC DISTRIBUTION WIDTH 13.3 % (11.5-14.5); RED BLOOD CELL CT 3.69 /CUMM (4.20-5.40); WHITE BLOOD CELL COUNT 16.2 /CUMM (4.8-10.8)
[2017-05-26 08:52] LABS: HEMATOCRIT 33.6 % (37-47)
--- NOTE | 2017-05-26 09:01 | PN- Orthopedic ---
See Addendum Subjective Subjective: No acute overnight events reported. Pain controlled. Pt in knee immobilizer. Denies chest pain, shortness of breath and difficulty breathing. Denies nausea and vomitting. Objective Vital Signs and I&Os Vital Signs Date Time Temp Pulse Resp B/P B/P Pulse O2 O2 Flow FiO2 Mean Ox Delivery Rate 05/26 654 97.6 66 18 132/54 97 05/26 0000 Nasal 2.0L Cannula 05/25 2224 97.9 64 18 130/56 98 Nasal 2.0L Cannula 05/25 2203 130/56 05/25 2202 64 130/56 05/25 2000 65 16 142/60 97 Nasal 2.0L Cannula 05/25 1508 98.8 73 20 150/83 95 Room Air 05/25 0916 94 158/64 Intake & Output 05/26 1600 05/26 0800 05/26 0000 05/25 1600 05/25 0800 05/25 0000 Intake Total 600 150 385 75 240 Output Total 350 500 500 Balance 250 150 -115 -425 240 Intake, IV 600 150 325 75 Intake, Oral 60 0 240 Number 0 0 Bowel Movements Output, Urine 350 500 500 Patient 153 lb Weight Weight Reported by Patient Measurement Method Physical Exam: General: Alert and oriented x3, no acute distress Cardiac: RRR, s1s2 Pulm: C TA bialterlaly ABD: non-tender, non-distended Ext: Moves all extremities distal sensation itact. NV status intact. DP on operative leg palpable. Dressing dry. Knee immobilizer in place. Bilateral calves soft/no-tender. Assessment/Plan Assessment/Plan Continue knee immobilizer Partial/toe touch weightbearing as tolerated Dressing change tomorrow PT to see today DVT ppx eliquis to start today will discuss poc with Dr. Weaver
--- NOTE | 2017-05-26 12:32 | Cons- Nephrology ---
General Information and HPI Consulting Request Date of Consult: 05/26/17 Requested By: Anat MAGALLANES,Thomas Reason for Consult: LAURA Source of Information: patient Exam Limitations: no limitations History of Present Illness: The patient is an 82-year-old woman with past medical history most significant for stage III chronic kidney disease with baseline creatinine approximately 1.2- 1.3follows with Dr. Lopez officenoted to renovascular disease with a atrophic kidney, hypertension, diabetes who is brought in by ambulance after mechanical fall and arrived. No prodromal symptoms. Presentation she was found to have a fracture of the patella. He went to the OR on 05/25 for repair. There were no noted complications and less than 50 mL of blood loss. Documented hypotension during the procedure. Since that time the patient has had poor by mouth intake - has been started on IVF. Her creatinine since gone up from 1.1 at the time of presentation to now 1.6. No nephrotoxic meds are contrast studies. She denies any difficulty evacuating her bladder. Should note that although there is no documented hypotension during the procedure, her blood pressure was 184/72 on presentation and did drop to 122/68 on 05/25. Allergies/Medications Allergies: Coded Allergies: Penicillins (RASH 05/24/17) Sulfa (Sulfonamide Antibiotics) (RASH 05/24/17) acetaminophen (PASSES OUT, POURING SWEAT 05/24/17) azithromycin (RASH 05/24/17) cephalexin (From KEFLEX) (RASH 05/24/17) ciprofloxacin (From CIPRO) (RASH 05/24/17) erythromycin base (RASH 05/24/17) ibuprofen (PASSES OUT, POURING SWEAT 05/24/17) Home Med List: Aspirin (Ecotrin*) 81 MG TABLET.DR 1 TAB PO DAILY HEART/BLOOD (Reported) Atorvastatin Calcium 20 MG TABLET 20 MG PO DAILY CHOLESTEROL (Reported) Calcitriol 0.25 MCG CAPSULE 1 CAP PO Friday PARATHYROID (Reported) Calcium Carbonate/Vitamin D3 (Os-Julio 500+D3 Caplet) (Unknown Strength) TABLET (Unknown Dose) PO DAILY SUPPLEMENT (Reported) Clonidine 0.1 MG/24 HOUR PATCH.TDWK 1 PATCH TOP QFRI BP (Reported) Hydrochlorothiazide 12.5 MG CAPSULE 3 CAP PO DAILY BP (Reported) Isradipine 2.5 MG CAPSULE 2 CAP PO QAM BP (Reported) Isradipine 2.5 MG CAPSULE 1 CAP PO QPM BP (Reported) Losartan Potassium 100 MG TABLET 100 MG PO QPM HTN (Reported) Metformin HCl 500 MG TABLET 500 MG PO DAILY DM (Reported) Metoprolol Succinate 200 MG TAB.ER.24H 200 MG PO DAILY HEART/BP (Reported) Omeprazole 20 MG CAPSULE.DR 20 MG PO DAILY AC GI (Reported) Vit A,C & E/Lutein/Minerals (Ocuvite With Lutein Tablet) 1,000-60-2 TABLET 1 TAB PO DAILY SUPPLEMENT (Reported) Current Medications: Current Medications Sig/Torin Start time Last Medication Dose Route Stop Time Status Admin Acetaminophen 1,000 MG Q6H 05/25 2115 DC IV Apixaban 2.5 MG BID 05/26 1000 AC 05/26 PO 1118 Atorvastatin Calcium 20 MG DAILY 05/25 1000 AC 05/26 PO 1113 Calcitriol 0.25 MCG 05/26 1000 AC 05/26 PO 1113 Clindamycin 600 MG ONCE ONE 05/26 0900 DC 05/26 Dextrose/Water 50 ML IV 05/26 0929 1004 Clindamycin 600 MG ONCE ONE 05/26 0100 DC 05/26 Dextrose/Water 50 ML IV 05/26 0129 0114 Clonidine 1 PAT QFRI 05/30 0700 AC TOP Dextrose/Sodium 1,000 ML Q13H 05/25 1900 AC 05/26 Chloride IV 1004 Dextrose/Sodium 1,000 ML Q13H 05/25 0600 DC 05/25 Chloride IV 0556 Fentanyl Citrate 250 MCG .STK-MED ONE 05/25 1551 DC IM 05/25 1552 Insulin Human Regular 0 TIDAC/HS 05/26 0800 AC 05/26 SC 1004 Insulin Human Regular 2 UNITS .STK-MED ONE 05/25 1239 DC IV 05/25 1240 Insulin Human Regular 0 Q6 05/24 2359 DC 05/25 SC 1237 Isradipine 2.5 MG QPM 05/25 2200 AC 05/25 PO 2203 Isradipine 5 MG QAM 05/25 1000 AC 05/26 PO 1119 Lidocaine 1 PAT DAILY PRN 05/24 1830 AC EXT Losartan Potassium 100 MG QPM 05/24 2200 DC 05/25 PO 2202 Meperidine HCl 50 MG .STK-MED ONE 05/25 1826 DC IM 05/25 1827 Metoprolol Succinate 200 MG DAILY 05/25 1000 05/26 PO 1118 Morphine Sulfate 1 MG Q6H PRN 05/25 2115 05/26 IV 1112 Morphine Sulfate 2 MG Q4 PRN 05/24 1830 05/25 IV 0909 Omeprazole 20 MG DAILY AC 05/25 0700 AC 05/26 PO 0519 Ondansetron HCl 4 MG Q6P PRN 05/25 1030 AC IV Review of Systems Review of Systems: Complete 14 point ROS neg except as per HPI Past History Travel History Traveled to [place] past 21 day No Medical History Blood Transfusion Hx: No Neurological: NONE EENT: allergies, cataracts Cardiovascular: hypertension, hyperlipidemia Respiratory: NONE Gastrointestinal: GERD Hepatic: NONE Renal: chronic kidney disease Musculoskeletal: chronic back pain, osteoarthritis, spinal stenosis Psychiatric: NONE Endocrine: diabetes Blood Disorders: NONE Cancer(s): melanoma EARLY CHILDHOOD WORKER/Reproductive: NONE Surgical History Surgical History: appendectomy, cataract removal, hysterectomy, spinal fusion, left minicus repair left shoulder repair coccyx repair ankle repair skin cancer removal x4 Psychosocial History Where Do You Live? Home Services at Home: None Smoking Status: Never Smoked Exam & Diagnostic Data Vital Signs and I&O Vital Signs Date Time Temp Pulse Resp B/P B/P Pulse O2 O2 Flow FiO2 Mean Ox Delivery Rate 05/26 1119 76 162/62 05/26 1118 76 162/62 05/26 0655 97.6 66 18 132/54 97 05 0000 Nasal 2.0L Cannula 05/25 2225 97.9 64 18 130/56 98 Nasal 2.0L Cannula 05/25 2203 130/56 05/25 2202 64 130/56 05/26 1999 65 16 142/60 97 Nasal 2.0L Cannula 05/25 1508 98.8 73 20 150/83 95 Room Air Intake & Output 05/26 1600 05/26 0400 05/25 1600 05/25 0400 05/24 1600 05/24 0400 Intake Total 600 150 460 240 0 Output Total 350 800 200 Balance 250 150 -340 40 0 Intake, IV 600 150 400 Intake, Oral 60 240 0 Number 0 0 Bowel Movements Output, Urine 350 800 200 Patient 153 lb 153 lb Weight Weight Reported by Patient Estimated Measurement Method Physical Exam: Gen - NAD Head - NCAT Eyes - anicteric sclera, EOMI Neck - supple, no LAD CV - RRR, no m/r/g Chest - clear, no w/r/r Abd - soft, NTND Upper ext - warm, no edema Lower ext - warm, no edema, R leg wrapped Skin - no rash or jaundice Neuro - AOX3, grossly nonfocal Results Pertinent Lab Results: Laboratory Tests 05/26 05/25 0710 1407 Chemistry Sodium (137 - 145 mmol/L) 136 L Potassium (3.5 - 5.1 mmol/L) 4.3 Chloride (98 - 107 mmol/L) 100 Carbon Dioxide (22 - 30 mmol/L) 25 Anion Gap (5 - 16) 11 BUN (7 - 17 mg/dL) 29 H Creatinine (0.5 - 1.0 mg/dL) 1.6 H Estimated GFR (>60 ml/min) 31 L BUN/Creatinine Ratio (7 - 25 %) 18.1 Hematology CBC w Diff NO MAN DIFF REQ WBC (4.8 - 10.8 /CUMM) 16.2 H RBC (4.20 - 5.40 /CUMM) 3.69 L Hgb (12.0 - 16.0 G/DL) 10.9 L Hct (37 - 47 %) 33.6 L MCV (81.0 - 99.0 FL) 91.1 MCH (27.0 - 31.0 PG) 29.6 MCHC (33.0 - 37.0 G/DL) 32.5 L RDW (11.5 - 14.5 %) 13.3 Plt Count (130 - 400 /CUMM) 255 MPV (7.4 - 10.4 FL) 9.4 Gran % (42.2 - 75.2 %) 79.1 H Lymphocytes % (20.5 - 51.1 %) 12.5 L Monocytes % (1.7 - 9.3 %) 8.2 Eosinophils % (0 - 5 %) 0 Basophils % (0.0 - 2.0 %) 0.2 Absolute Granulocytes (1.4 - 6.5 /CUMM) 12.8 H Absolute Lymphocytes (1.2 - 3.4 /CUMM) 2.0 Absolute Monocytes (0.10 - 0.60 /CUMM) 1.3 H Absolute Eosinophils (0.0 - 0.7 /CUMM) 0 Absolute Basophils (0.0 - 0.2 /CUMM) 0 Urines Urine Color (YEL,AMB,STR) YEL Urine Clarity (CLEAR) HAZY H Urine pH (5.0 - 8.0) 6.0 Ur Specific [place] (1.001 - 1.035) 1.015 Urine Protein (NEG,<30 MG/DL) NEG Urine Ketones (NEG) NEG Urine Nitrite (NEG) NEG Urine Bilirubin (NEG) NEG Urine Urobilinogen (0.1 - 1.0 EU/dl) 0.2 Ur Leukocyte Esterase (NEG) LARGE H Ur Microscopic SEDIMENT EXAMINED Urine RBC (0 - 5 /HPF) 1-3 Urine WBC (0 - 2 /HPF) 15-25 H Ur Epithelial Cells (NONE,FEW) FEW Urine Bacteria (NEG/NONE) RARE H Urine Hemoglobin (NEG) NEG Urine Glucose (N MG/DL) NEG 05/25 05/24 0712 1443 Chemistry Sodium (137 - 145 mmol/L) 140 143 Potassium (3.5 - 5.1 mmol/L) 4.5 4.4 Chloride (98 - 107 mmol/L) 101 102 Carbon Dioxide (22 - 30 mmol/L) 28 28 Anion Gap (5 - 16) 11 13 BUN (7 - 17 mg/dL) 31 H 38 H Creatinine (0.5 - 1.0 mg/dL) 1.2 H 1.1 H Estimated GFR (>60 ml/min) 43 L 47 L BUN/Creatinine Ratio (7 - 25 %) 25.8 H 34.5 H Glucose (65 - 99 mg/dL) 115 H Calcium (8.4 - 10.2 mg/dL) 9.8 Total Bilirubin (0.2 - 1.3 mg/dL) 0.8 AST (14 - 36 U/L) 24 ALT (9 - 52 U/L) 28 Alkaline Phosphatase (<127 U/L) 60 Total Protein (6.3 - 8.2 g/dL) 7.4 Albumin (3.5 - 5.0 g/dL) 4.3 Globulin (1.9 - 4.2 gm/dL) 3.1 Albumin/Globulin Ratio (1.1 - 2.2 %) 1.4 Coagulation PT (9.4 - 12.5 SEC) 11.3 INR (0.90 - 1.19) 1.08 APTT (25 - 37 SEC) 28 Hematology CBC w Diff NO MAN DIFF REQ NO MAN DIFF REQ WBC (4.8 - 10.8 /CUMM) 13.9 H 13.6 H RBC (4.20 - 5.40 /CUMM) 4.38 5.16 Hgb (12.0 - 16.0 G/DL) 13.1 15.1 Hct (37 - 47 %) 39.5 46.5 MCV (81.0 - 99.0 FL) 90.2 90.1 MCH (27.0 - 31.0 PG) 29.8 29.2 MCHC (33.0 - 37.0 G/DL) 33.0 32.5 L RDW (11.5 - 14.5 %) 13.8 13.5 Plt Count (130 - 400 /CUMM) 285 322 MPV (7.4 - 10.4 FL) 9.4 9.0 Gran % (42.2 - 75.2 %) 65.9 76.8 H Lymphocytes % (20.5 - 51.1 %) 25.0 17.8 L Monocytes % (1.7 - 9.3 %) 8.2 4.6 Eosinophils % (0 - 5 %) 0.7 0.5 Basophils % (0.0 - 2.0 %) 0.2 0.3 Absolute Granulocytes (1.4 - 6.5 /CUMM) 9.1 H 10.4 H Absolute Lymphocytes (1.2 - 3.4 /CUMM) 3.5 H 2.4 Absolute Monocytes (0.10 - 0.60 /CUMM) 1.1 H 0.6 Absolute Eosinophils (0.0 - 0.7 /CUMM) 0.1 0.1 Absolute Basophils (0.0 - 0.2 /CUMM) 0 0 Imaging/Other Studies: EXAM TYPE: RAD - XRY-PORTABLE CHEST XRAY EXAMINATION: XR PORTABLE CHEST CLINICAL INFORMATION: Preop. COMPARISON: Chest radiography 10/18/2010. TECHNIQUE: Portable frontal view of the chest was obtained. FINDINGS: The lungs are well expanded. No focal consolidation, pleural effusion, pulmonary edema, or pneumothorax. No mediastinal widening. Aortic atherosclerotic calcification. No acute osseous abnormalities. IMPRESSION: No acute pulmonary pathology. Assessment/Plan Assessment/Recommendations Assessment: Stage III CKD - Baseline SCr approx 1.2-1.3 - atrophic kidney - minimally proteinuric - likely 2/2 hypertensive nephrosclerosis, vascular disease. LAURA - Likely 2/2 either ATN in the setting of unrecognized intra-op hypotension and/or pre-renal azotemia from decreased PO intake post-op. Should rule out urinary obstruction given pain med use post-op. HTN - Baseline difficult to control blood pressure - would target goal approx SBP 140's for now. Recommendations: -Cont IVF as you are -Bladder scan for post void residual; Renal US if ambiguous -Urine Na, Urine Cr -Cont current BP regimen - OK to hold ARB with LAURA -f/u UCx Please call [phone] with ?'s
[2017-05-26 15:32] VITALS: BP 136/56
[2017-05-26 21:58] VITALS: BP 142/52
--- NOTE | 2017-05-27 07:02 | PN- Housestaff ---
Arianne MAGALLANES,[facility] 05/27/17 0701: Subjective Follow-up For: Patella Fracture Subjective: Patient was seen and examined at bedside. She states her pain is significantly better today around 2/10, but was excruciating yesterday. Patient spiked a fever overnight 101.4 F. Review of Systems Constitutional: Reports: no symptoms. Objective Last 24 Hrs of Vital Signs/I&O Vital Signs Date Time Temp Pulse Resp B/P B/P Pulse O2 O2 Flow FiO2 Mean Ox Delivery Rate 05/27 0733 98.2 83 20 102/58 93 05/27 0516 97.8 05/26 2158 101.4 76 20 142/52 96 Room Air 05/26 2050 76 142/52 05/26 1620 Nasal 2.0L Cannula 05/26 1532 99.8 83 18 136/56 94 05/26 1119 76 162/62 05/26 1118 76 162/62 Physical Exam General Appearance: Alert, Oriented X3, Cooperative, Mild Distress Skin: No Rashes, No Breakdown Skin Temp/Moisture Exam: Warm/Dry Sepsis Skin Exam (color): Normal for Ethnicity HEENT: Atraumatic Cardiovascular: Normal S1, Normal S2, No Murmurs Lungs: Clear to Auscultation, Normal Air Movement Abdomen: Soft, No Tenderness Neurological: Normal Speech Extremities: No Edema, right leg in taylor wraps and brace Assessment/Plan Assessment: 82-year-old pleasant lady with past medical history of hypertension, CKD, diabetes presented after mechanical fall and was found to have a patellar fracture after a mechanical fall. Assessment: 1. Right comminuted displaced distal pole patella fracture secondary to mechanical fall 2. History of Hypertension and diabetes 3. Leukocytosis. Likely Reactive 4. Prerenal azotemia - resolved. Plan: * Would d/c IV morphine and start her on an oral regimen. She is hypotensive plus she can't be discharged on IV pain regimen to SNF. * Will start her on Tramadol. May change to oxycodone if needed. * Continue PT. She did minimal activity yesterday due to severe pain. * Urine culture pending * She has a persistent white count and with fever overnight, would treat her UTI. * Start Ceftriaxone 1g daily. Patient has an allergy listed to penicillin. States it is confined to a rash which happened 50 years ago. * Would observe during when she gets antibiotics. * Nephro recs appreciated * LAURA improving. Urine lytes unremarkable. * Continue Clonidine patch. * Hold Losartan for now. * Hold HCTZ as well for now. * Continue IVF for now. * Diet: Regular. Blood sugars in acceptable range. Will switch to CC1 if patient becomes too hyperglycemic. * DVT Prophylaxis: Eliquis 2.5mg BID for 6 weeks. * F/u with Dr Orr in 2 weeks. * Code: Full Code Problem List: 1. Patella fracture Pain Ratin Pain Location: none Pain Goal: Remain pain free Pain Plan: none Tomorrow's Labs & Rationales: CBC, BEP Anat,Thomas 05/27/17 1201: Attending MD Review Statement Attending Statement Attending MD Statement: examined this patient, discuss w/resident/PA/RADIO DIRECTOR, agreed w/resident/PA/RADIO DIRECTOR, discussed with family, reviewed EMR data (avail), discussed with nursing, discussed with case mgmt, reviewed images, amended to note Attending Assessment/Plan: #Acute Right Patellar Fracture s/p repair- comminuted/fragmented, s/p mechanical fall. Probable osteoporosis in 82 yo post menopausal female s/p repair, orthopedics following, DVT prophyalxis as per ortho. Will continue Ca/Vit D. #Acute kidney injury : cr 1.6>>1.3 with improvement. Plan: Held losartan, held diuretics, resumed clonidine patch. f/u nephrology. Monitor creatinine. resume taylor inhibitor as per neprhology. Add empiric abx for UTI (fever+UA). f/u urine culture. #DM2- patient has had stable sugars at home. Plan: Held Metformin and use sliding scale insulin in hospital. #HL- on Atorvastatin. Plan: Continue Atorvastatin. #GERD- on Omeprazole. Plan: Continue Omeprazole.
[2017-05-27 07:33] VITALS: BP 102/58
[2017-05-27 08:00] LABS: ABSOLUTE BASOPHIL COUNT 0.1 /CUMM (0.0-0.2); ABSOLUTE EOSINOPHIL COUNT 0.1 /CUMM (0.0-0.7); ABSOLUTE GRANULOCYTE CT 9.8 /CUMM (1.4-6.5); ABSOLUTE LYMPH COUNT 2.9 /CUMM (1.2-3.4); ABSOLUTE MONOCYTE COUNT 1.3 /CUMM (0.10-0.60); BASOPHIL % 0.4 % (0.0-2.0); EOSINOPHIL % 0.4 % (0-5); GRANULOCYTE % 69.3 % (42.2-75.2); HEMATOCRIT 31.1 % (37-47); MEAN CORPUSCULAR HGB 30.3 PG (27.0-31.0); MEAN CORPUSCULAR HGB CONC 33.6 G/DL (33.0-37.0); MEAN CORPUSCULAR VOLUME 90.1 FL (81.0-99.0); MEAN PLATELET VOLUME 9.5 FL (7.4-10.4); PLATELET COUNT 225 /CUMM (130-400); RBC DISTRIBUTION WIDTH 13.1 % (11.5-14.5); RED BLOOD CELL CT 3.45 /CUMM (4.20-5.40); WHITE BLOOD CELL COUNT 14.2 /CUMM (4.8-10.8)
--- NOTE | 2017-05-27 09:36 | PN- Orthopedic ---
Subjective Subjective: pain is better today, no acute events overnight. minimal work w PT yesterday. Objective Vital Signs and I&Os Vital Signs Date Time Temp Pulse Resp B/P B/P Pulse O2 O2 Flow FiO2 Mean Ox Delivery Rate 05/27 732 98.2 83 20 102/58 93 05/27 0516 97.8 05/26 2158 101.4 76 20 142/52 96 Room Air 05/26 2050 76 142/52 05/26 1620 Nasal 2.0L Cannula 05/26 1532 99.8 83 18 136/56 94 05/26 1119 76 162/62 05/26 1118 76 162/62 Intake & Output 05/27 1600 05/27 0800 05/27 0000 05/26 1600 05/26 0805/26 0000 Intake Total 611 227 8642 600 150 Output Total 450 450 350 Balance 390 465 900 250 150 Intake, IV 600 225 750 600 150 Intake, Oral 240 240 600 Number 0 0 0 Bowel Movements Output, Urine 450 450 350 Physical Exam: General: Alert and oriented x3, no acute distress no resp distress. Ext: Moves all extremities distal sensation itact. NV status intact. DP on operative leg palpable. Dressing dry. Knee immobilizer in place. Bilateral calves soft/no-tender. dressing changed. mild dry blood on dressing. incision staple line intact. mild swelling. dsd applied. Assessment/Plan Assessment/Plan POD#2 sp R knee partial patellectomy and repair of comminuted patella fracture. orthopedically stable for dc to snf. continue knee immobilizer for at least 6 weeks, no knee flexion allowed. dressing changed, dsd and taylor applied, change qod. ice, elevate eliquis for dvt ppx. for 6w cont PT, partial wb RLE 2 week follow up in office with Dr Weaver call with questions.
--- NOTE | 2017-05-27 13:12 | PN- Nephrology ---
Assessment/Plan Nephrology Assessment: Stage III CKD - Baseline SCr approx 1.2-1.3 - atrophic kidney - minimally proteinuric - likely 2/2 hypertensive nephrosclerosis, vascular disease. LAURA - Likely 2/2 either ATN in the setting of unrecognized intra-op hypotension and/or pre-renal azotemia from decreased PO intake post-op. Improved. Not clear if bladder scan for PVR done. HTN - BP low today also in the setting of fever. ARB being held. May need to downtitrate meds even further. Suggestion: -Cont IVF as you are until taking in PO -Bladder scan for post void residual if not already done; Renal US if ambiguous -May need to downtitrate BP meds even further Will see PRN Please call [phone] with ?'s Subjective Subjective: SCr down to 1.3 Mag 75 Still not eating - on IVF Fever overnight - started on Ceftriaxone - UCx neg BP 100/56 this AM Objective Vital Signs and I&Os Vital Signs Date Time Temp Pulse Resp B/P B/P Pulse O2 O2 Flow FiO2 Mean Ox Delivery Rate 05/27 0939 78 100/56 05/27 0937 78 100/56 05/27 0733 98.2 83 20 102/58 93 / 0516 97.8 05/26 2158 101.4 76 20 142/52 96 Room Air 05/26 205 76 142/52 05/26 1620 Nasal 2.0L Cannula 05/26 1532 99.8 83 18 136/56 94 Intake & Output 05/27 1600 05/27 0400 05/26 1600 05/26 0400 05/25 1600 05/25 0400 Intake Total 114 256 3618 150 460 240 Output Total 450 800 800 200 Balance 913 742 5840 150 -340 40 Intake, IV 431 343 4429 150 400 Intake, Oral 240 240 600 60 240 Number 0 0 0 0 0 Bowel Movements Output, Urine 450 800 800 200 Patient 153 lb Weight Weight Reported by Patient Measurement Method Physical Exam: Gen - NAD HEENT - supple CV - RRR, no m/r/g Chest - clear, no w/r/r Abd - soft, NTND Ext - warm, no edema Neuro - AOX3, grossly nonfocal Current Medications: Current Medications Sig/Torin Start time Last Medication Dose Route Stop Time Status Admin Apixaban 2.5 MG BID 05/26 1000 AC 05/27 PO 0937 Atorvastatin Calcium 20 MG DAILY 05/25 1000 AC 05/27 PO 0937 Calcitriol 0.25 MCG 05/26 1000 AC 05/26 PO 1113 Ceftriaxone Sodium 1,000 MG DAILY 05/27 1000 AC 05/27 IV 1134 Clonidine 1 PAT QFRI 05/30 0700 AC TOP Dextrose/Sodium 1,000 ML Q13H 05/25 1900 AC 05/27 Chloride IV 1257 Diazepam 5 MG TID PRN 05/26 1915 AC 05/26 PO 2049 Diclofenac Sodium 1 VALERIO 4 TIMES/DAY PRN 05/26 1400 DC 05/26 TOP 1637 Diphenhydramine HCl 25 MG ONCE ONE 05/27 0930 DC IV 05/27 0931 Docusate Sodium 100 MG DAILY NEEDED PRN 05/27 0845 AC 05/27 PO 0937 Insulin Aspart 0 TIDAC 05/26 1700 AC 05/27 SC 1257 Insulin Human Regular 0 TIDAC/HS 05/26 0800 DC 05/26 SC 1004 Isradipine 2.5 MG QPM 05/25 2200 AC 05/26 PO 2050 Isradipine 5 MG QAM 05/25 1000 AC 05/26 PO 1119 Lidocaine 1 PAT DAILY 05/26 1353 AC 05/27 EXT 0946 Lidocaine 1 PAT DAILY PRN 05/24 1830 AC EXT Metoprolol Succinate 200 MG DAILY 05/25 1000 AC 05/26 PO 1118 Morphine Sulfate 2 MG ONCE ONE 05/26 1330 CAN IV 05/26 1331 Morphine Sulfate 1 MG Q6H PRN / 2115 AC 05/26 IV 1238 Morphine Sulfate 2 MG Q4 PRN 05/24 1830 AC 05/27 IV 0515 Omeprazole 20 MG DAILY AC 05/25 0700 AC 05/27 PO 0514 Ondansetron HCl 4 MG Q6P PRN 05/25 1030 AC 05/26 IV 1237 Patient Medication 1 ED ONE ONE 05/26 1600 DC 05/26 Teaching ED 05/26 1601 1924 Polyethylene Glycol 17 GM DAILY 05/27 1000 AC 05/27 PO 1012 Senna 187 MG DAILY 05/27 1000 AC 05/27 PO 1012 Tramadol HCl 50 MG ONCE ONE 05/27 1000 DC 05/27 PO 05/27 1001 1015 Results Pertinent Lab Results: Laboratory Tests 05/27 05/27 05/26 1009 0658 1701 Chemistry Sodium (137 - 145 mmol/L) 135 L Potassium (3.5 - 5.1 mmol/L) 3.9 Chloride (98 - 107 mmol/L) 100 Carbon Dioxide (22 - 30 mmol/L) 23 Anion Gap (5 - 16) 12 BUN (7 - 17 mg/dL) 24 H Creatinine (0.5 - 1.0 mg/dL) 1.3 H Estimated GFR (>60 ml/min) 39 L BUN/Creatinine Ratio (7 - 25 %) 18.5 Lactic Acid (0.7 - 2.1 mmol/L) 1.8 Hematology CBC w Diff NO MAN DIFF REQ WBC (4.8 - 10.8 /CUMM) 14.2 H RBC (4.20 - 5.40 /CUMM) 3.45 L Hgb (12.0 - 16.0 G/DL) 10.5 L Hct (37 - 47 %) 31.1 L MCV (81.0 - 99.0 FL) 90.1 MCH (27.0 - 31.0 PG) 30.3 MCHC (33.0 - 37.0 G/DL) 33.6 RDW (11.5 - 14.5 %) 13.1 Plt Count (130 - 400 /CUMM) 225 MPV (7.4 - 10.4 FL) 9.5 Gran % (42.2 - 75.2 %) 69.3 Lymphocytes % (20.5 - 51.1 %) 20.6 Monocytes % (1.7 - 9.3 %) 9.3 Eosinophils % (0 - 5 %) 0.4 Basophils % (0.0 - 2.0 %) 0.4 Absolute Granulocytes (1.4 - 6.5 /CUMM) 9.8 H Absolute Lymphocytes (1.2 - 3.4 /CUMM) 2.9 Absolute Monocytes (0.10 - 0.60 /CUMM) 1.3 H Absolute Eosinophils (0.0 - 0.7 /CUMM) 0.1 Absolute Basophils (0.0 - 0.2 /CUMM) 0.1 Urines Ur Random Creatinine (mg/dL) 97.8 Ur Random Sodium (30 - 90 mmol/L) 75 Ur Random Potassium (mmol/L) 42.1 Fraction Sodium Excret (<1% %) 0.9 05/26 05/25 0710 1407 Chemistry Sodium (137 - 145 mmol/L) 136 L Potassium (3.5 - 5.1 mmol/L) 4.3 Chloride (98 - 107 mmol/L) 100 Carbon Dioxide (22 - 30 mmol/L) 25 Anion Gap (5 - 16) 11 BUN (7 - 17 mg/dL) 29 H Creatinine (0.5 - 1.0 mg/dL) 1.6 H Estimated GFR (>60 ml/min) 31 L BUN/Creatinine Ratio (7 - 25 %) 18.1 Hematology CBC w Diff NO MAN DIFF REQ WBC (4.8 - 10.8 /CUMM) 16.2 H RBC (4.20 - 5.40 /CUMM) 3.69 L Hgb (12.0 - 16.0 G/DL) 10.9 L Hct (37 - 47 %) 33.6 L MCV (81.0 - 99.0 FL) 91.1 MCH (27.0 - 31.0 PG) 29.6 MCHC (33.0 - 37.0 G/DL) 32.5 L RDW (11.5 - 14.5 %) 13.3 Plt Count (130 - 400 /CUMM) 255 MPV (7.4 - 10.4 FL) 9.4 Gran % (42.2 - 75.2 %) 79.1 H Lymphocytes % (20.5 - 51.1 %) 12.5 L Monocytes % (1.7 - 9.3 %) 8.2 Eosinophils % (0 - 5 %) 0 Basophils % (0.0 - 2.0 %) 0.2 Absolute Granulocytes (1.4 - 6.5 /CUMM) 12.8 H Absolute Lymphocytes (1.2 - 3.4 /CUMM) 2.0 Absolute Monocytes (0.10 - 0.60 /CUMM) 1.3 H Absolute Eosinophils (0.0 - 0.7 /CUMM) 0 Absolute Basophils (0.0 - 0.2 /CUMM) 0 Urines Urine Color (YEL,AMB,STR) YEL Urine Clarity (CLEAR) HAZY H Urine pH (5.0 - 8.0) 6.0 Ur Specific [place] (1.001 - 1.035) 1.015 Urine Protein (NEG,<30 MG/DL) NEG Urine Ketones (NEG) NEG Urine Nitrite (NEG) NEG Urine Bilirubin (NEG) NEG Urine Urobilinogen (0.1 - 1.0 EU/dl) 0.2 Ur Leukocyte Esterase (NEG) LARGE H Ur Microscopic SEDIMENT EXAMINED Urine RBC (0 - 5 /HPF) 1-3 Urine WBC (0 - 2 /HPF) 15-25 H Ur Epithelial Cells (NONE,FEW) FEW Urine Bacteria (NEG/NONE) RARE H Urine Hemoglobin (NEG) NEG Urine Glucose (N MG/DL) NEG 05/25 05/24 0712 1443 Chemistry Sodium (137 - 145 mmol/L) 140 143 Potassium (3.5 - 5.1 mmol/L) 4.5 4.4 Chloride (98 - 107 mmol/L) 101 102 Carbon Dioxide (22 - 30 mmol/L) 28 28 Anion Gap (5 - 16) 11 13 BUN (7 - 17 mg/dL) 31 H 38 H Creatinine (0.5 - 1.0 mg/dL) 1.2 H 1.1 H Estimated GFR (>60 ml/min) 43 L 47 L BUN/Creatinine Ratio (7 - 25 %) 25.8 H 34.5 H Glucose (65 - 99 mg/dL) 115 H Calcium (8.4 - 10.2 mg/dL) 9.8 Total Bilirubin (0.2 - 1.3 mg/dL) 0.8 AST (14 - 36 U/L) 24 ALT (9 - 52 U/L) 28 Alkaline Phosphatase (<127 U/L) 60 Total Protein (6.3 - 8.2 g/dL) 7.4 Albumin (3.5 - 5.0 g/dL) 4.3 Globulin (1.9 - 4.2 gm/dL) 3.1 Albumin/Globulin Ratio (1.1 - 2.2 %) 1.4 Coagulation PT (9.4 - 12.5 SEC) 11.3 INR (0.90 - 1.19) 1.08 APTT (25 - 37 SEC) 28 Hematology CBC w Diff NO MAN DIFF REQ NO MAN DIFF REQ WBC (4.8 - 10.8 /CUMM) 13.9 H 13.6 H RBC (4.20 - 5.40 /CUMM) 4.38 5.16 Hgb (12.0 - 16.0 G/DL) 13.1 15.1 Hct (37 - 47 %) 39.5 46.5 MCV (81.0 - 99.0 FL) 90.2 90.1 MCH (27.0 - 31.0 PG) 29.8 29.2 MCHC (33.0 - 37.0 G/DL) 33.0 32.5 L RDW (11.5 - 14.5 %) 13.8 13.5 Plt Count (130 - 400 /CUMM) 285 322 MPV (7.4 - 10.4 FL) 9.4 9.0 Gran % (42.2 - 75.2 %) 65.9 76.8 H Lymphocytes % (20.5 - 51.1 %) 25.0 17.8 L Monocytes % (1.7 - 9.3 %) 8.2 4.6 Eosinophils % (0 - 5 %) 0.7 0.5 Basophils % (0.0 - 2.0 %) 0.2 0.3 Absolute Granulocytes (1.4 - 6.5 /CUMM) 9.1 H 10.4 H Absolute Lymphocytes (1.2 - 3.4 /CUMM) 3.5 H 2.4 Absolute Monocytes (0.10 - 0.60 /CUMM) 1.1 H 0.6 Absolute Eosinophils (0.0 - 0.7 /CUMM) 0.1 0.1 Absolute Basophils (0.0 - 0.2 /CUMM) 0 0 Imaging/Other Studies: None new
[2017-05-27 15:13] VITALS: BP 138/70
--- NOTE | 2017-05-27 16:20 | Patient Discharge Instructions ---
Discharge Instructions General Discharge Information You were seen/treated for: Patella Fracture You had these procedures: Repair right comminuted displaced patellar fracture with partial patellectomy. Special Instructions: Please follow up with Dr Weaver within 2 weeks of discharge. Please follow up with your PCP and ruling machine set up operator within one week of discharge. Please also have your medications reviewed Diet Continue normal diet: Yes Recommended Diet: Diabetic Activity Full Activity/No Limits: No Activity Self Limited: Yes Acute Coronary Syndrome Inclusion Criteria At DC or during hospital stay patient has or had the following: ACS DIAGNOSIS No Discharge Core Measures Meds if any: Prescribed or Continued at Discharge Meds if any: NOT Prescribed or Continued at Discharge Congestive Heart Failure Inclusion Criteria At DC or during hospital stay patient has or had the following: CHF DIAGNOSIS No Discharge Core Measures Meds if any: Prescribed or Continued at Discharge Meds if any: NOT Prescribed or Continued at Discharge Cerebrovascular accident Inclusion Criteria At DC or during hospital stay patient has or had the following: CVA/TIA Diagnosis No Discharge Core Measures Meds if any: Prescribed or Continued at Discharge Meds if any: NOT Prescribed or Continued at Discharge Venous thromboembolism Inclusion Criteria VTE Diagnosis No VTE Type NONE VTE Confirmed by (Test) NONE Discharge Core Measures - Per Current guidelines, there needs to be overlap - treatment for the first 5 days of Warfarin therapy. - If discharged on Warfarin prior to 5 days of - overlap therapy, the patient will need to be - assessed for post discharge needs including - *Post discharge parental anticoagulation - *Warfarin and/or parental anticoagulation education - *Follow up date to check INR post discharge At least 5 days overlap therapy as Inpatient No Meds if any: Prescribed or Continued at Discharge Note: Overlap Therapy is Warfarin and Anticoagulant Meds if any: NOT Prescribed or Continued at Discharge
[2017-05-27] MEDS ORDERED: ELIQUIS2.5 M1 PO (16:22)
[2017-05-27 21:25] VITALS: BP 160/64
[2017-05-28 06:46] VITALS: BP 163/57
--- NOTE | 2017-05-28 07:14 | PN- Housestaff ---
Arianne MAGALLANES,[facility] 05/28/17 0714: Subjective Follow-up For: Patella Fracture LAURA Subjective: Patient was seen and examined at bedside. She reports doing okay. Had a rough night due to constant pain in her right hip and leg. She is unsure if the lidoderm patch helps to improve her symptoms. She does find relief with the tramadol and oxycodone. Review of Systems Constitutional: Reports: no symptoms. Musculoskeletal: Reports: joint pain. Objective Last 24 Hrs of Vital Signs/I&O Vital Signs Date Time Temp Pulse Resp B/P B/P Pulse O2 O2 Flow FiO2 Mean Ox Delivery Rate 05/28 1054 98.6 88 18 142/60 05/28 0850 88 158/60 05/28 0843 88 158/60 05/28 0646 99.1 92 18 163/57 93 Room Air 05/27 2128 93 160/64 05/27 2125 99.1 93 18 160/64 95 Room Air 05/27 1513 98.9 82 20 138/70 96 Room Air Intake & Output 05/28 1600 05/28 0800 05/28 0000 Intake Total 600 705 Output Total 300 200 300 Balance -300 400 405 Intake, IV 600 225 Intake, Oral 480 Number 1 Bowel Movements Output, Urine 300 200 300 Physical Exam General Appearance: Alert, Oriented X3, Cooperative, Mild Distress Skin: No Rashes, No Breakdown Skin Temp/Moisture Exam: Warm/Dry Sepsis Skin Exam (color): Normal for Ethnicity HEENT: Atraumatic Cardiovascular: Normal S1, Normal S2, No Murmurs Lungs: Clear to Auscultation, Normal Air Movement Abdomen: Soft, No Tenderness Neurological: Normal Speech Extremities: No Edema Assessment/Plan Assessment: 82-year-old pleasant lady with past medical history of hypertension, CKD, diabetes presented after mechanical fall and was found to have a patellar fracture after a mechanical fall. Assessment: 1. Right comminuted displaced distal pole patella fracture secondary to mechanical fall 2. History of Hypertension and diabetes 3. Leukocytosis. Improving 4. Prerenal azotemia - resolved. 5. LAURA on CKD - resolved. Plan: * Continue Tramadol and oxycodone for pain. * Continue PT as tolerated * Urine culture shows no growth. * She has a persistent white count which has improved from yesterday. She has afebrile overnight. * Continue Ceftriaxone 1g daily for her UTI. Will switch her to Ceftin on discharge. * Nephro recs appreciated * LAURA resolved to baseline. * Continue Clonidine patch, Isradipine and metoprolol * Restart Losartan. * Hold HCTZ for now. Will hold it at discharge. * Continue IVF for now. * Diet: Regular. Blood sugars in acceptable range for hospital. * DVT Prophylaxis: Eliquis 2.5mg BID for 6 weeks. * F/u with Dr Weaver in 2 weeks. * Code: Full Code Problem List: 1. Patella fracture Pain Ratin Pain Location: none Pain Goal: Remain pain free Pain Plan: none Tomorrow's Labs & Rationales: none Thomas Coppola 05/28/17 1039: Attending MD Review Statement Attending Statement Attending MD Statement: examined this patient, discuss w/resident/PA/CENTER DIRECTOR, agreed w/resident/PA/CENTER DIRECTOR, discussed with family, reviewed EMR data (avail), discussed with nursing, discussed with case mgmt, reviewed images, amended to note Attending Assessment/Plan: Patient clinically improved with afebrile and working with PT. Patient had relief in constipation. Patient is on empiric abx for cystitis. Her kidney functions ahs improved. Will stop hctz at dsicharge and resume losartan as her creatinine funciton is baseline now. f/u Nephrology in 1 week of discharge. Patient is on eliquis as dvt prophyalxis from ortho. Patient is medically stable for discharge. gi/dvt prophyalxis full code.
[2017-05-28] MEDS ORDERED: CEFUROXIME500 MG PO (07:57)
[2017-05-28] MEDS ORDERED: TRAMADOL HCL50 M1 PO (08:00)
[2017-05-28] MEDS ORDERED: OXYCODONE HCL10 M2 PO ×2 (08:00→08:01)
[2017-05-28] MEDS ORDERED: LIDODERM1 EACH TOP (08:00)
[2017-05-28 08:07] LABS: ABSOLUTE BASOPHIL COUNT 0 /CUMM (0.0-0.2); ABSOLUTE EOSINOPHIL COUNT 0.1 /CUMM (0.0-0.7); ABSOLUTE GRANULOCYTE CT 8.5 /CUMM (1.4-6.5); ABSOLUTE LYMPH COUNT 3.2 /CUMM (1.2-3.4); ABSOLUTE MONOCYTE COUNT 1.1 /CUMM (0.10-0.60); BASOPHIL % 0.3 % (0.0-2.0); EOSINOPHIL % 0.7 % (0-5); HEMATOCRIT 30.5 % (37-47); MEAN CORPUSCULAR HGB 30.4 PG (27.0-31.0); MEAN CORPUSCULAR HGB CONC 33.6 G/DL (33.0-37.0); MEAN CORPUSCULAR VOLUME 90.3 FL (81.0-99.0); MEAN PLATELET VOLUME 9.6 FL (7.4-10.4); PLATELET COUNT 235 /CUMM (130-400); RBC DISTRIBUTION WIDTH 13.3 % (11.5-14.5); RED BLOOD CELL CT 3.38 /CUMM (4.20-5.40); WHITE BLOOD CELL COUNT 12.9 /CUMM (4.8-10.8)
--- NOTE | 2017-05-28 08:20 | Discharge Summary ---
Visit Information Visit Dates Admission Date: 05/24/17 Discharge Date: 05/28/2017 Hospital Course Course Attending Physician: Thomas Coppola MD Primary Care Physician: Darlene MAGALLANES,Steven Marie Hospital Course: This 82-year-old lady with a past medical history of hypertension on multiple BP meds, nephrectomy, [id number] diabetes, presented to [place] ED for evaluation of a mechanical fall. Patient slipped on a rug at the door step of her house and fell hard on her knees. She reported that on that particular day the conditions were very slippery outside due to the weather. She denied any any presyncope/syncopal episode or hitting her head. At presentation her vitals are stable. Physical examination was remarkable for moderate edema and ecchymosis over the right patella. There was tenderness to palpation diffusely over the right knee and positive ballottement test on the right knee. X-ray of the hip and knee were obtained. No acute fracture noted on the hip x-ray however the knee x-ray was positive for comminuted and fragmented fracture of the patella with superiordislocation and presumed disruption of the superior patellar ligament. She was admitted to general medicine floor for preop clearance and eventual patellar repair by orthopedic service. On day fifth, after surgery she was discharged to short-term rehabilitation. The following issues were addressed during hospital stay: #Patella fracture secondary to mechanical fall knee partial patellectomy and repair of comminuted patella fracture was performed on 05/26. There was no intraoperative complication reported. She had a knee mobilizer placed and was instructed to keep at least 6 weeks with no new flexion allowed. She is also started on a Elliquis for 6 weeks for DVT prophylaxis. He underwent physical therapy and the disposition was for her to go to short-term rehabilitation. She is to follow-up with Dr. Weaver the orthopedic surgeon within 2 weeks after discharge. #UTI Patient developed a fever on day 4, a urinalysis is obtained was remarkable for possible infection. She was started on ceftriaxone and on discharge date was transitioned to oral cephalexin to complete a seven-day treatment course. She had remained afebrile for more than 24 hours prior to discharge. #Acute on Chronic kidney injury Differential included prerenal as leukemia secondary to decreased by mouth intake postoperatively versus acute tubular necrosis. She does have a history of partial nephrectomy and CKD stage III. Nephrology was consulted who agreed with holding the angiotensin receptor darien and continue with IV fluid hydration. Highest creatinine during hospital stay was 1.6 and with IV fluid hydration it subsequently trended down and on discharge date he was 1.1 which was admission baseline creatinine. Patient was instructed to keep on following up with Dr. Lopez who is her moisture meter reader #Hyponatremia Mild acute hyponatremia with a Sodium of 135 on discharge. Most likley 2/2 to hypovolemic hyponatremia exacerbated by hctz use. Expected resolution with adequate hydration. Hctz was withheld during stay and discharge. #History of chronic diseases: Hypertension (her Losartan was temporarily with held during surgery day and also subsequent days as her creatinine was trending up). On discharge date, the ARB was restarted. In the setting of hyponatremia and pre-renal azotemia, the hctz was stopped and patient will follow up with Dr Lopez/nephismael (she already has an appt scheduled) and PCP regarding re-initiation of hctz. Allergies: Coded Allergies: Penicillins (RASH 05/24/17) Sulfa (Sulfonamide Antibiotics) (RASH 05/24/17) acetaminophen (PASSES OUT, POURING SWEAT 05/24/17) azithromycin (RASH 05/24/17) cephalexin (From KEFLEX) (RASH 05/24/17) ciprofloxacin (From CIPRO) (RASH 05/24/17) erythromycin base (RASH 05/24/17) ibuprofen (PASSES OUT, POURING SWEAT 05/24/17) Significant Procedures: Surgery Date: 05/25/17 Name of Procedure: Repair right comminuted displaced patellar fracture with partial patellectomy. Pre-Operative Diagnosis: Right comminuted displaced distal pole patella fracture. Post-Operative Diagnosis: Same. Estimated Blood Loss: less than 50ml Surgeon/Special Education Instructor: Viridiana Weaver Pertinent Lab Results: SERVICE DATE: 05/24/17-1212 EXAM TYPE: RAD - XRY-HIP 2-3 VIEWS, RIGHT; XRY-KNEE COMPLETE RIGHT EXAMINATION: XR HIP; KNEE, RIGHT CLINICAL INFORMATION: 82-year-old woman with fall and pain. COMPARISON: None TECHNIQUE: AP view of the pelvis and 2 dedicated views of the right hip were obtained along with 4 views of the right knee. FINDINGS: Pelvis/hip: AP view of the pelvis demonstrates no evidence of acute fracture. Chronic degenerative changes are seen at the pubic symphysis and SI joints. There has been prior lower lumbar spinal fusion. Dedicated views of the right hip demonstrates no evidence of acute fracture. Alignment remains anatomic. There is mild degenerative loss of normal articular cartilage space. Knee: There is a comminuted and superiorly displaced fracture of the patella which appears somewhat fragmented. The position of the patella suggests disruption of the patellar ligament is well, at least superiorly. Alignment of the femur and tibia is anatomic. There is chondrocalcinosis and mild to moderate loss of medial and lateral compartment articular cartilage space. There is prepatellar soft tissue swelling. No definite joint effusion is identified. IMPRESSION: 1. No evidence of acute fracture or dislocation involving the pelvis or right hip. 2. Comminuted and fragmented fracture of the patella with superior dislocation and presumed disruption of the superior patellar ligament. DICTATED BY: Abisai MAGALLANES,Xenia Disposition Summary Disposition Principal Diagnosis: Patella fracture Additional Diagnosis: UTI, acute on chronic kidney disease, hyponatremia Discharge Disposition: SNF Discharge Instructions General Discharge Information Code Status: Full Code Patient's Diet: Diabetic diet Patient's Activity: As tolerated Follow-Up Instructions/Appts: continue knee immobilizer for at least 6 weeks, no knee flexion allowed. dressing changed, dsd and taylor applied, change every other day. ice and elevate knee. eliquis for dvt ppx for 6 weeks Continue physical therapy, partial weight bearing for right lower extremity 2 week follow up in office with Dr Weaver (orthopedics) Medications at Discharge Discharge Medications: Stop taking the following medications: Hydrochlorothiazide (Hydrochlorothiazide) 12.5 MG CAPSULE ORAL DAILY Qty = 270 Continue taking these medications: Omeprazole (Omeprazole) 20 MG CAPSULE.DR 20 Milligram ORAL DAILY BEFORE BREAKFAST Qty = 90 Comments: Last Taken: 05/28/17 Time: 6:00 AM Metoprolol Succinate (Metoprolol Succinate) 200 MG TAB.ER.24H 200 Milligram ORAL DAILY Qty = 30 Comments: Last Taken: 05/28/17 Time: 9:00 AM Metformin HCl (Metformin HCl) 500 MG TABLET 500 Milligram ORAL DAILY Qty = 90 Comments: NOT GIVEN IN HOSPITAL Losartan Potassium (Losartan Potassium) 100 MG TABLET 100 Milligram ORAL Every night Qty = 90 Comments: NOT GIVEN IN HOSPITAL Atorvastatin Calcium (Atorvastatin Calcium) 20 MG TABLET 20 Milligram ORAL DAILY Qty = 90 Comments: Last Taken: 05/28/17 Time: 9:00 AM Vit A,C & E/Lutein/Minerals (Ocuvite With Lutein Tablet) 1,000-60-2 TABLET 1 Tablet ORAL DAILY Qty = 0 Comments: NOT GIVEN IN HOSPITAL Aspirin (Ecotrin*) 81 MG TABLET.DR 1 Tablet ORAL DAILY Comments: NOT GIVEN IN HOSPITAL Calcitriol (Calcitriol) 0.25 MCG CAPSULE 1 Capsule ORAL FRIDAY, FRIDAY AND FRIDAY Comments: Last Taken: 05/28/17 Time: 9:00 AM Calcium Carbonate/Vitamin D3 (Os-Julio 500+D3 Caplet) 500 MG-200 TABLET 1 Tablet ORAL DAILY Qty = 30 Comments: NOT GIVEN IN HOSPITAL Isradipine (Isradipine) 2.5 MG CAPSULE 2 Capsule ORAL Every Morning Qty = 270 Comments: Last Taken: 05/28/17 Time: 9:00 AM Isradipine (Isradipine) 2.5 MG CAPSULE 1 Capsule ORAL Every night Clonidine (Clonidine) 0.1 MG/24 HOUR PATCH.TDWK 1 PATCH On the skin EVERY FRIDAY Qty = 4 Comments: NOT GIVEN IN HOSPITAL Start taking the following new medications: Oxycodone HCl (Oxycodone HCl) 10 MG TABLET 1 Tablet ORAL Every 12 hours as needed as needed for Knee and Hip Pain Qty = 20 No Refills Comments: Last Taken: 05/28/17 Time: 3:30 AM Apixaban (Eliquis) 2.5 MG TABLET 2.5 Milligram ORAL TWICE DAILY Qty = 60 No Refills Instructions: Please take it for 6 weeks Comments: Last Taken: 05/28/17 Time: 9:00 AM Cefuroxime Axetil (Cefuroxime) 500 MG TABLET 0.5 Tablet ORAL TWICE DAILY Qty = 7 No Refills Comments: NOT GIVEN IN HOSPITAL Tramadol HCl (Tramadol HCl) 50 MG TABLET 1 Tablet ORAL EVERY SIX HOURS NEEDED as needed for Knee and Hip Pain Qty = 30 No Refills Comments: Last Taken: 05/28/17 Time: 9:00 AM Lidocaine (Lidoderm) 5 % ADH..PATCH 1 Patch On the skin DAILY as needed for Hip Pain Qty = 30 No Refills Instructions: may wear up to 12 hours Comments: Last Taken: 05/28/17 Time: 9:00 AM Ondansetron HCl (Zofran) 4 MG TABLET 1 Tablet ORAL EVERY 4-6 HOURS NEEDED as needed for nausea Qty = 20 No Refills Copies To: Darlene MAGALLANES,Steven Marie Attending MD Review Statement Documenting Attending: Thomas Coppola MD Other Findings: Patient clinically improved with afebrile and working with PT. Patient had relief in constipation. Patient is on empiric abx for cystitis. Her kidney functions ahs improved. Will stop hctz at dsicharge and resume losartan as her creatinine funciton is baseline now. f/u Nephrology in 1 week of discharge. Patient is on eliquis as dvt prophyalxis from ortho. Patient is medically stable for discharge. FOLLOW UP PCP in 1 week Orhtopedics in 2 weeks Stop taking the following medications: Hydrochlorothiazide (Hydrochlorothiazide) 12.5 MG CAPSULE ORAL DAILY Qty = 270 Continue taking these medications: Omeprazole (Omeprazole) 20 MG CAPSULE.DR 20 Milligram ORAL DAILY BEFORE BREAKFAST Qty = 90 Comments: Last Taken: 05/28/17 Time: 6:00 AM Metoprolol Succinate (Metoprolol Succinate) 200 MG TAB.ER.24H 200 Milligram ORAL DAILY Qty = 30 Comments: Last Taken: 05/28/17 Time: 9:00 AM Metformin HCl (Metformin HCl) 500 MG TABLET 500 Milligram ORAL DAILY Qty = 90 Comments: NOT GIVEN IN HOSPITAL Losartan Potassium (Losartan Potassium) 100 MG TABLET 100 Milligram ORAL Every night Qty = 90 Comments: NOT GIVEN IN HOSPITAL Atorvastatin Calcium (Atorvastatin Calcium) 20 MG TABLET 20 Milligram ORAL DAILY Qty = 90 Comments: Last Taken: 05/28/17 Time: 9:00 AM Vit A,C & E/Lutein/Minerals (Ocuvite With Lutein Tablet) 1,000-60-2 TABLET 1 Tablet ORAL DAILY Qty = 0 Comments: NOT GIVEN IN HOSPITAL Aspirin (Ecotrin*) 81 MG TABLET.DR 1 Tablet ORAL DAILY Comments: NOT GIVEN IN HOSPITAL Calcitriol (Calcitriol) 0.25 MCG CAPSULE 1 Capsule ORAL FRIDAY, FRIDAY AND FRIDAY Comments: Last Taken: 05/28/17 Time: 9:00 AM Calcium Carbonate/Vitamin D3 (Os-Julio 500+D3 Caplet) 500 MG-200 TABLET 1 Tablet ORAL DAILY Qty = 30 Comments: NOT GIVEN IN HOSPITAL Isradipine (Isradipine) 2.5 MG CAPSULE 2 Capsule ORAL Every Morning Qty = 270 Comments: Last Taken: 05/28/17 Time: 9:00 AM Isradipine (Isradipine) 2.5 MG CAPSULE 1 Capsule ORAL Every night Clonidine (Clonidine) 0.1 MG/24 HOUR PATCH.TDWK 1 PATCH On the skin EVERY FRIDAY Qty = 4 Comments: NOT GIVEN IN HOSPITAL Start taking the following new medications: Oxycodone HCl (Oxycodone HCl) 10 MG TABLET 1 Tablet ORAL Every 12 hours as needed as needed for Knee and Hip Pain Qty = 20 No Refills Comments: Last Taken: 05/28/17 Time: 3:30 AM Apixaban (Eliquis) 2.5 MG TABLET 2.5 Milligram ORAL TWICE DAILY Qty = 60 No Refills Instructions: Please take it for 6 weeks Comments: Last Taken: 05/28/17 Time: 9:00 AM Cefuroxime Axetil (Cefuroxime) 500 MG TABLET 0.5 Tablet ORAL TWICE DAILY Qty = 7 No Refills Comments: NOT GIVEN IN HOSPITAL Tramadol HCl (Tramadol HCl) 50 MG TABLET 1 Tablet ORAL EVERY SIX HOURS NEEDED as needed for Knee and Hip Pain Qty = 30 No Refills Comments: Last Taken: 05/28/17 Time: 9:00 AM Lidocaine (Lidoderm) 5 % ADH..PATCH 1 Patch On the skin DAILY as needed for Hip Pain Qty = 30 No Refills Instructions: may wear up to 12 hours Comments: Last Taken: 05/28/17 Time: 9:00 AM Copies To: Darlene MAGALLANES,Steven Marie
[2017-05-28 10:54] VITALS: BP 142/60; BP 158/60
[2017-05-28] MEDS ORDERED: ZOFRAN4 M2 PO (13:51)
== END 2017-05-28 14:04 | DRG 488 ==
LOC: ERH 11:52 → ERHI 15:54 → 2NB 15:54 → ENTRNSPT 16:48 → ENRESERV 17:02 → 2NB 17:10 → CMPTRNSPT 17:18 → ENTRNSPT 05-25 19:28 → EDTRNSPTSTS 05-25 19:53 → EDTRNSPT 05-25 19:53 → CMPTRNSPT 05-25 20:05 → 2NB 05-26 08:20
PROVIDERS: Internal Medicine; Physician Assistant; Student in an Organized Health Care Education/Training Program
PROC: 0QBD0ZZ Excision of Right Patella, Open Approach (ICD-10-PCS; principal; 2017-05-25)
PROC: 3E0T3BZ Introduction of Anesthetic Agent into Peripheral Nerves and Plexi, Percutaneous Approach (ICD-10-PCS; principal; 2017-05-25)
PROC: 0MQN0ZZ Repair Right Knee Bursa and Ligament, Open Approach (ICD-10-PCS; principal; 2017-05-25)
DX: S82.041A Displaced comminuted fracture of right patella, initial encounter for closed fracture (principal); N17.9 Acute kidney failure, unspecified; E11.22 Type 2 diabetes mellitus with diabetic chronic kidney disease; N39.0 Urinary tract infection, site not specified; E78.5 Hyperlipidemia, unspecified; D72.829 Elevated white blood cell count, unspecified; S76.111A Strain of right quadriceps muscle, fascia and tendon, initial encounter; I12.9 Hypertensive chronic kidney disease with stage 1 through stage 4 chronic kidney disease, or unspecified chronic kidney disease; N18.3 Chronic kidney disease, stage 3 (moderate); Z79.84 Long term (current) use of oral hypoglycemic drugs; R39.2 Extrarenal uremia; W01.0XXA Fall on same level from slipping, tripping and stumbling without subsequent striking against object, initial encounter; Y92.019 Unspecified place in single-family (private) house as the place of occurrence of the external cause; Z88.6 Allergy status to analgesic agent; Z88.3 Allergy status to other anti-infective agents; Z88.0 Allergy status to penicillin; Z88.2 Allergy status to sulfonamides; Z79.82 Long term (current) use of aspirin; K21.9 Gastro-esophageal reflux disease without esophagitis; Z90.710 Acquired absence of both cervix and uterus; Z98.1 Arthrodesis status; Z85.820 Personal history of malignant melanoma of skin
CPT/HCPCS: 2NBP; 84133; 84300; 36415; 36592; 71045; 73502-RT; 73562-RT; 81001; 82436; 82570; 87040; 87086; 93005; 93010; 96374; 96375; 97110-GO; 97116-GO; 97530-GO; J0131; J0696; J1200; J1815; J2405; J3490; J7042; J7508